=== PATIENT | female | born 1950 | race Hispanic/Latino ===

== ENCOUNTER → 2017-08-10 | Day surgery (SDC) | payer MEDICARE ==
[2017-08-09 17:02] LABS: BASOPHILS % 0.4 % (0.0-1.0); EOSINOPHILS # (AUTO) 0.1 (0.0-0.4); EOSINOPHILS % 2.4 % (0.0-6.0); HEMATOCRIT 31.3 % (34.2-44.1); HEMOGLOBIN 10.8 g/dL (12.0-16.0); LYMPHOCYTES # (AUTO) 0.8 (1.0-3.2); LYMPHOCYTES % 32.1 % (18.0-39.1); MEAN CORPUSCULAR HEMOGLOBIN 31.8 pg (28-32); MEAN CORPUSCULAR HGB CONC 34.5 g/dL (31-35); MEAN CORPUSCULAR VOLUME 92.1 fL (81-99); MONOCYTES # (AUTO) 0.2 (0.2-0.8); MONOCYTES % 6.7 % (4.4-11.3); NEUTROPHILS # (AUTO) 1.5 (2.1-6.9); NEUTROPHILS % 58.4 % (38.7-80.0); RED CELL DISTRIBUTION WIDTH 13.5 % (11.7-14.4)
[2017-08-09 17:03] LABS: PLATELET COUNT 77 x10e3/uL (140-360)
[~2017-08-10] MED LIST: B-12500 MCG; BIOTIN1 MG; FENTANYL CITRATE/PF 100MCG/2 ML INJ ONE; HYOSCYAMINE SULFATE 0.5 MG/ML AMP ONE; METFORMIN HCL500 MG PO; MIDAZOLAM HCL 2 MG/2 ML VIAL ONE; MILK THISTLE140 M1; PHYTONADIONE 10MG/ML 20 MG in SODIUM CHLORIDE 0.9% 50ML 50 ML IV ONE; PRAVASTATIN SOD10 MG; PROBIOTIC & AC1 EACH; PROPOFOL IV EMULSION 10 MG/ML 50 ML VIAL ONE; TUMERIC/CURCUMIN; VITAMIN D400 UNIT PO; Z.0.GLIMEPIRIDE4 MG PO; Z.0.TRICOR145 MG PO; Z.1.KOMBIGLYZE XR1 E PO
--- NOTE | 2017-08-10 13:05 | Operative Report ---
DATE OF PROCEDURE: August 10, 2017 REFERRING PHYSICIAN: Dr. Brad Ford. PROCEDURE PERFORMED: 1. Esophagogastroduodenoscopy with biopsies. 2. Colonoscopy with polypectomy and biopsies. INDICATIONS FOR ESOPHAGOGASTRODUODENOSCOPY: Dyspepsia. INDICATIONS FOR COLONOSCOPY: Colorectal cancer screening, personal history of colon polyps, abnormal CAT scan of the abdomen. MEDICATION: Patient was done under MAC. Please see anesthesiologist's note. PROCEDURE: With the patient in the left lateral decubitus position, the flexible fiberoptic Olympus gastroscope was introduced into the esophagus under direct visualization without any difficulty. Grade 3 to 4 esophageal varices were noted without active bleeding or stigmata of recent hemorrhage. The scope was then advanced with ease into the stomach. Mucosa overlying the antrum and the body revealed some diffuse erythema and moderate edema with minimal portal hypertensive gastropathy changes. The pylorus was of normal contour and shape, was intubated with ease, and the scope was advanced all the way to the second portion of the duodenum. The scope was then withdrawn slowly. Mucosa overlying the proximal second portion and duodenal bulb grossly appeared to be within normal limits. The scope was then withdrawn back into the stomach and retroflexed, and there were no fundal varices or cardiac varices. The scope was then straightened out. It was subsequently withdrawn. Patient tolerated the procedure well. IMPRESSION: 1. Grade 3 to 4 esophageal varices without active bleeding or stigmata of recent hemorrhage. 2. Gastritis with minimal portal hypertensive gastropathy changes. Biopsies obtained and sent to stain for H. pylori. 3. No fundal or cardiac varices were noted. PLAN: Follow up histology. Initiate Protonix 40 mg 1 p.o. q.a.m. a.c. Start Inderal 10 mg 1 p.o. b.i.d. Patient will electively need variceal banding. Will also discuss with patient regarding hepatitis C therapy. Patient was then turned around and after adequate lubrication of the anal canal, a flexible fiberoptic Olympus colonoscope was inserted into the rectum with ease and advanced all the way to the cecum. A minute polyp was hot biopsied from the cecum. The ileocecal valve was intubated, and the scope was advanced into the terminal ileum. There were some patchy areas of erythema and low-grade edema noted, and a hot biopsy was obtained from the terminal ileum. The scope was then withdrawn back into the colon. It was then withdrawn slowly, and there were some patchy areas of irritation noted in the ascending and the transverse. One polyp was snared from the descending colon. The sigmoid and the rectum revealed also some minimal inflammatory changes. The scope was then retroflexed into the distal rectum, and moderate-sized internal hemorrhoids were noted, none of which was actively bleeding. The scope was then straightened out. It was subsequently withdrawn. Patient tolerated procedure well. IMPRESSION: 1. Mild patchy nonspecific colitis. 2. Cecal polyp hot biopsied. 3. Descending colon polyp snared. 4. Internal hemorrhoids, none actively bleeding. PLAN: Follow up histology. Initiate high-fiber low-fat diet. Initiate high-fiber supplement. Patient might benefit from a followup colonoscopy in 3 years. Job#: [id number] EV cc:BRAD FORD MD
== END | disposition home or self-care (01) ==
LOC: OR 09:24
PROVIDERS: ATTEND Internal Medicine Gastroenterology
DX: Z12.11 Encounter for screening for malignant neoplasm of colon (principal); D12.0 Benign neoplasm of cecum; K52.9 Noninfective gastroenteritis and colitis, unspecified; K29.70 Gastritis, unspecified, without bleeding; K74.60 Unspecified cirrhosis of liver; I85.10 Secondary esophageal varices without bleeding; K76.6 Portal hypertension; K31.89 Other diseases of stomach and duodenum; K21.9 Gastro-esophageal reflux disease without esophagitis; K64.8 Other hemorrhoids; E11.9 Type 2 diabetes mellitus without complications; N20.0 Calculus of kidney; Z88.8 Allergy status to other drugs, medicaments and biological substances; Z01.810 Encounter for preprocedural cardiovascular examination; Z01.812 Encounter for preprocedural laboratory examination; Z79.84 Long term (current) use of oral hypoglycemic drugs
CPT/HCPCS: 36415 ×2; 43239; 45384; 45385; 82948; 85025; 88305; 88312; 93005; J1980; J2250; J3430; 45378; 45380

== ENCOUNTER → 2017-08-18 | Outpatient (CLI) | payer MEDICARE ==
[~2017-08-18] MED LIST changes: -FENTANYL CITRATE/PF 100MCG/2 ML INJ ONE; -HYOSCYAMINE SULFATE 0.5 MG/ML AMP ONE; -MIDAZOLAM HCL 2 MG/2 ML VIAL ONE; -PHYTONADIONE 10MG/ML 20 MG in SODIUM CHLORIDE 0.9% 50ML 50 ML IV ONE; -PROPOFOL IV EMULSION 10 MG/ML 50 ML VIAL ONE
--- NOTE | 2017-08-18 21:16 | Diagnostic Imaging Report ---
Liver-Spleen Scan with SPECT Clinical information: 66 F with elevated liver enzymes and possible cirrhosis Report: Following intravenous administration of 7.6 mCi of Tc-99 and sulfur colloid, images of the liver and spleen were obtained in multiple projections. Tomographic (SPECT) images of the liver and spleen were also obtained. The liver appears generally normal in size. The spleen is enlarged. Distribution of tracer activity is homogeneous throughout the hepatic and splenic parenchyma. Tracer in the spleen is increased relative to the liver. No focal abnormalities are identified. Very mildly increased tracer activity is seen in the bone marrow. Impression: 1. No scan evidence of hepatic or splenic masses. 2. Mild hypersplenism and colloid shift are present consistent with early cirrhosis. 3. The spleen is enlarged. Signed by: Dr. Alisson Vega M.D. on 08/18/2017 9:13 PM
== END ==
LOC: NM 11:52
PROVIDERS: ATTEND Internal Medicine Gastroenterology
DX: R74.8 Abnormal levels of other serum enzymes (principal)
CPT/HCPCS: 78215; A9541

== ENCOUNTER 2017-09-26 17:57 | Inpatient (IN) | payer MEDICARE ==
[~2017-09-26] VITALS: Ht 157.5 cm; Wt 70.3 kg
[2017-09-26] MEDS ORDERED: DICYCLOMINE HCL10 MG PO (18:34)
[2017-09-26] MEDS ORDERED: PRAVASTATIN SOD40 MG PO (18:34)
[2017-09-26] MEDS ORDERED: PROPRANOLOL HCL10 MG PO (18:34)
[2017-09-26] MEDS ORDERED: PANTOPRAZOLE SO40 MG PO (18:34)
[2017-09-26] MEDS ORDERED: ONDANSETRON HCL INJ 2 MG/ML VIAL IV STA (19:35)
[2017-09-26] MEDS ORDERED: MORPHINE SULFATE 2 MG/ML SYR IV STA (19:35)
[2017-09-26 19:42] LABS: BASOPHILS % 0.3 % (0.0-1.0); EOSINOPHILS # (AUTO) 0.8 (0.0-0.4); EOSINOPHILS % 12.8 % (0.0-6.0); HEMATOCRIT 32.4 % (34.2-44.1); HEMOGLOBIN 11.4 g/dL (12.0-16.0); LYMPHOCYTES % 17.8 % (18.0-39.1); MEAN CORPUSCULAR HEMOGLOBIN 31.5 pg (28-32); MEAN CORPUSCULAR HGB CONC 35.2 g/dL (31-35); MEAN CORPUSCULAR VOLUME 89.5 fL (81-99); MONOCYTES # (AUTO) 0.3 (0.2-0.8); MONOCYTES % 5.5 % (4.4-11.3); NEUTROPHILS # (AUTO) 3.7 (2.1-6.9); NEUTROPHILS % 63.1 % (38.7-80.0); PLATELET COUNT 104 x10e3/uL (140-360); RED BLOOD COUNT 3.62 x10e6/uL (3.6-5.1); RED CELL DISTRIBUTION WIDTH 13.8 % (11.7-14.4)
[2017-09-26 19:44] LABS: BILIRUBIN,URINE NEGATIVE (NEGATIVE); CLARITY,URINE CLEAR (CLEAR); COLOR,URINE YELLOW (YELLOW); KETONES,URINE NEGATIVE (NEGATIVE); LEUKOCYTE ESTERASE ,URINE NEGATIVE (NEGATIVE); NITRITE,URINE NEGATIVE (NEGATIVE); PROTEIN,URINE DIPSTICK NEGATIVE (NEGATIVE); URINE UROBILINOGEN 0.2 mg/dL (0.2 - 1)
[2017-09-26 19:46] LABS: INR 1.17
[2017-09-26 19:47] LABS: PARTIAL THROMBOPLASTIN TIME 28.9 seconds (23.8-35.5)
[2017-09-26 19:52] LABS: EPITHELIAL CELLS,URINE RARE /LPF; WBC,URINE (MAN) 0-5 /HPF (0-5)
[2017-09-26 19:57] LABS: ALANINE AMINOTRANSFERASE 29 IU/L (0-55); ALBUMIN 3.4 g/dL (3.5-5.0); ALBUMIN/GLOBULIN RATIO 0.8 (0.8-2.0); ALKALINE PHOSPHATASE 205 IU/L (40-150); AMYLASE 63 U/L (25-125); ANION GAP 14.9 mmol/L (8-16); BLOOD UREA NITROGEN 9 mg/dL (7-26); BUN/CREATININE RATIO 12 (6-25); CALCIUM 9.4 mg/dL (8.4-10.2); CARBON DIOXIDE 23 mmol/L (22-29); CHLORIDE 104 mmol/L (98-107); CREATININE, SERUM 0.76 mg/dL (0.57-1.11); EST GLOMERULAR FILTRATION RATE > 60 ML/MIN (60-); GLUCOSE 145 mg/dL (74-118); LIPASE 21 U/L (8-78); POTASSIUM 3.9 mmol/L (3.5-5.1); SODIUM 138 mmol/L (136-145)
[2017-09-26] MEDS ORDERED: IOPAMIDOL 370 MG/ML 200 ML INFUS..BTL INJ ONE (21:10)
[2017-09-26] MEDS ORDERED: SODIUM CHLORIDE 0.9% 50ML 50 ML ONE (21:10)
--- NOTE | 2017-09-26 23:03 | Diagnostic Imaging Report ---
EXAM: CT Abdomen and Pelvis WITH contrast INDICATION: Abdominal pain COMPARISON: None. TECHNIQUE: Abdomen and pelvis were scanned utilizing a multidetector helical scanner from the lung base to the pubic symphysis after administration of IV contrast. Coronal and sagittal reformations were obtained. Routine protocol was performed. Scan was performed when during portal venous phase. IV CONTRAST: 100 mL of Isovue-370 ORAL CONTRAST: None RADIATION DOSE: Total DLP: 394 mGy*cm Estimated effective dose: (DLP x 0.015 x size factor) mSv COMPLICATIONS: None FINDINGS: LINES and TUBES: None. LOWER THORAX: Unremarkable HEPATOBILIARY: No focal hepatic lesions. No biliary ductal dilation. GALLBLADDER: There are cholecystectomy clips. SPLEEN: No splenomegaly. PANCREAS: No focal masses or ductal dilatation. ADRENALS: No adrenal nodules KIDNEYS/URETERS: Kidneys enhance symmetrically. No hydronephrosis. No cystic or solid mass lesions. No stones. GI TRACT: There is loss of distal colonic haustration with significant inflammation of the sigmoid colon and rectum. The presence of pericolic fat stranding and retroperitoneal edema is suggestive of acute/subacute inflammatory process. Appendix is not clearly identified. There is however no fat stranding or adenopathy in the right lower quadrant to suggest appendicitis. PELVIC ORGANS/BLADDER: Unremarkable. LYMPH NODES: No lymphadenopathy. VESSELS: There is mild atherosclerotic disease in the aorta and major arterial branches. PERITONEUM / RETROPERITONEUM: No free air or fluid. BONES: There are degenerative changes in the lumbar spine. SOFT TISSUES: Unremarkable. IMPRESSION: 1. Findings in the sigmoid colon and rectum are compatible with colitis and proctitis of indeterminate origin. This may be inflammatory or infectious. No evidence of abscess formation. 2. Correlation with most recent colonoscopy. 3. Underlying, occult, neoplastic process cannot be excluded. Follow-up is recommended. Signed by: Dr. Gumaro Pena M.D. on 09/26/2017 10:59 PM
[2017-09-26] MEDS: SODIUM CHLORIDE 0.9% 1000ML 1,000 ML IV SCH (23:14)
[2017-09-26] MEDS ORDERED: DEXTROSE 50% SYRINGE 50 ML IV PRN (23:15)
[2017-09-27] VITALS (9 sets, daily range): BP systolic 96–143; BP diastolic 50–63
[2017-09-27] MEDS: METRONIDAZOLE 500MG/NS 100ML IV SCH ×3 (00:02→06:00)
[2017-09-27] MEDS ORDERED: ONDANSETRON HCL INJ 2 MG/ML VIAL ONE (01:16)
[2017-09-27] MEDS ORDERED: MORPHINE SULFATE 2 MG/ML SYR ONE (01:17)
[2017-09-27] MEDS ORDERED: LEVOFLOXACIN 500MG/D5W 100ML 100 ML IV ONE (01:17)
[2017-09-27] MEDS ORDERED: SODIUM CHLORIDE 0.9% 1000ML 1,000 ML ONE (01:17)
[2017-09-27] MEDS: ONDANSETRON HCL INJ 2 MG/ML VIAL IV PRN ×3 (01:25→12:30)
[2017-09-27] MEDS: MORPHINE SULFATE 2 MG/ML SYR IV PRN ×4 (01:25→20:39)
[2017-09-27] MEDS: LEVOFLOXACIN 500MG/D5W 100ML IV SCH ×2 (01:50→23:25)
[2017-09-27 05:34] LABS: BASOPHILS % 0.2 % (0.0-1.0); EOSINOPHILS # (AUTO) 0.6 (0.0-0.4); EOSINOPHILS % 12.9 % (0.0-6.0); HEMATOCRIT 28.3 % (34.2-44.1); HEMOGLOBIN 9.5 g/dL (12.0-16.0); LYMPHOCYTES % 23.4 % (18.0-39.1); MEAN CORPUSCULAR HGB CONC 33.6 g/dL (31-35); MEAN CORPUSCULAR VOLUME 92.5 fL (81-99); MONOCYTES # (AUTO) 0.3 (0.2-0.8); MONOCYTES % 7.7 % (4.4-11.3); NEUTROPHILS # (AUTO) 2.4 (2.1-6.9); NEUTROPHILS % 55.1 % (38.7-80.0); PLATELET COUNT 75 x10e3/uL (140-360); RED BLOOD COUNT 3.06 x10e6/uL (3.6-5.1); RED CELL DISTRIBUTION WIDTH 13.8 % (11.7-14.4)
[2017-09-27 06:03] LABS: ALANINE AMINOTRANSFERASE 44 IU/L (0-55); ALBUMIN 2.9 g/dL (3.5-5.0); ALBUMIN/GLOBULIN RATIO 0.8 (0.8-2.0); ALKALINE PHOSPHATASE 225 IU/L (40-150); ANION GAP 13.1 mmol/L (8-16); BLOOD UREA NITROGEN 8 mg/dL (7-26); BUN/CREATININE RATIO 11 (6-25); CALCIUM 8.9 mg/dL (8.4-10.2); CARBON DIOXIDE 25 mmol/L (22-29); CHLORIDE 105 mmol/L (98-107); CREATININE, SERUM 0.73 mg/dL (0.57-1.11); EST GLOMERULAR FILTRATION RATE > 60 ML/MIN (60-); GLUCOSE 115 mg/dL (74-118); POTASSIUM 4.1 mmol/L (3.5-5.1); SODIUM 139 mmol/L (136-145)
[2017-09-27 07:11] LABS: EOSINOPHILS % (MANUAL) 13 % (0-7); LYMPHOCYTES % (MANUAL) 21 % (19-48); MONOCYTES % (MANUAL) 8 % (3.4-9.0); NEUTROPHILS % (MANUAL) 58 % (40-74)
[2017-09-27 07:12] LABS: ANISOCYTOSIS SLIGHT; HYPOCHROMASIA SLIGHT; PLATELET ESTIMATE SLIGHTLY DECREASED; PLATELET MORPHOLOGY COMMENT FEW LARGE; POIKILOCYTOSIS SLIGHT; RBC MORPHOLOGY COMMENT ABNORMAL
[2017-09-27] MEDS: INSULIN REGULAR, HUMAN 100 UNIT/1 ML 3ML VIAL SQ SCH ×4 (08:34→21:30)
[2017-09-27] MEDS: SODIUM CHLORIDE 0.9% 1000ML 1,000 ML IV SCH ×2 (10:18→19:18)
[2017-09-27] MEDS: METRONIDAZOLE 500 MG TAB PO SCH ×2 (12:29→17:08)
[2017-09-28] VITALS (7 sets, daily range): BP systolic 129–143; BP diastolic 59–64
[2017-09-28] MEDS: MORPHINE SULFATE 2 MG/ML SYR IV PRN ×6 (00:19→23:47)
[2017-09-28] MEDS: METRONIDAZOLE 500 MG TAB PO SCH ×4 (00:52→17:52)
[2017-09-28] MEDS: ONDANSETRON HCL INJ 2 MG/ML VIAL IV PRN ×4 (00:52→21:00)
[2017-09-28] MEDS: ACETAMINOPHEN 325 MG TAB PO PRN (00:52)
[2017-09-28] MEDS ORDERED: CITRATE OF MAGNESIA 300ML BOTTLE PO ONE ×2 (02:45)
[2017-09-28] MEDS ORDERED: ACETAMINOPHEN 1000 MG/100 ML IV PRN (02:45)
[2017-09-28] MEDS: HYOSCYAMINE SULFATE 0.5 MG/ML AMP IV PRN ×3 (02:58→18:32)
[2017-09-28] MEDS: SODIUM CHLORIDE 0.9% 1000ML 1,000 ML IV SCH ×2 (05:20→08:14)
[2017-09-28] MEDS ORDERED: METRONIDAZOLE 500MG/NS 100ML 100 ML IV SCH (06:00)
[2017-09-28] MEDS: INSULIN REGULAR, HUMAN 100 UNIT/1 ML 3ML VIAL SQ SCH ×4 (08:35→21:00)
[2017-09-28] MEDS ORDERED: LIDOCAINE HCL 2% LOCAL INJ 5 ML SDV VIAL INJ ONE (14:11)
[2017-09-28] MEDS ORDERED: HYOSCYAMINE SULFATE 0.5 MG/ML AMP ONE (14:11)
[2017-09-28] MEDS ORDERED: PROPOFOL IV EMULSION 10 MG/ML 50 ML VIAL ONE (14:11)
[2017-09-28 16:23] LABS: WBC,FECAL (FECAL LACTOFERRIN) POSITIVE (NEGATIVE)
[2017-09-28] MEDS ORDERED: MORPHINE SULFATE 2 MG/ML SYR ONE (16:24)
--- NOTE | 2017-09-28 16:38 | Operative Report ---
DATE OF PROCEDURE: September 28, 2017 REFERRING PHYSICIAN: Dr. Brad Ford PROCEDURE PERFORMED: Colonoscopy with biopsies. INDICATIONS FOR COLONOSCOPY: Colitis per CT scan, abdominal pain, diarrhea. MEDICATION: Patient was done under MAC. Please see anesthesiologist's note. PROCEDURE: With the patient in the left lateral decubitus position, the flexible fiberoptic Olympus colonoscope was inserted into the rectum with ease and advanced all the way to the proximal ascending colon. Prep was suboptimal with moderate amount of retained stools in the colon. The scope was then withdrawn slowly, and multiple pseudomembranes were noted in the in the ascending, transverse, descending and sigmoid colon and biopsies were obtained. The rectal mucosa revealed moderate inflammatory changes, and biopsies were obtained. The scope was then retroflexed into the distal rectum, and small internal hemorrhoids were noted, none of which was actively bleeding. The scope was then straightened out. It was subsequently withdrawn after securing an adequate stool specimen that was sent for the appropriate stool studies. Patient tolerated the procedure well. IMPRESSION 1. Suboptimal prep. 2. Rule out pseudomembranous colitis. 3. Proctitis. 4. Internal hemorrhoids, none actively bleeding. PLAN: Follow up histology. Follow up stool studies. Start vancomycin 250 mg 1 p.o. q.6 h. Initiate full liquid diet. Job#: [id number] cc:BRAD FORD MD
[2017-09-28] MEDS: VANCOMYCIN 250MG/5ML ORAL SOLN PO SCH ×2 (17:52→23:57)
[2017-09-28] MEDS ORDERED: MIDAZOLAM HCL 2 MG/2 ML VIAL ONE (18:47)
[2017-09-28] MEDS ORDERED: FENTANYL CITRATE/PF 100MCG/2 ML INJ ONE (18:47)
[2017-09-29] VITALS: BP 120/57
[2017-09-29] MEDS: SODIUM CHLORIDE 0.9% 1000ML 1,000 ML IV SCH ×3 (01:14→21:14)
[2017-09-29] MEDS: METRONIDAZOLE 500MG/NS 100ML 100 ML IV SCH ×4 (02:00→22:00)
[2017-09-29] MEDS: HYOSCYAMINE SULFATE 0.5 MG/ML AMP IV PRN ×4 (02:30→22:00)
[2017-09-29] MEDS: MORPHINE SULFATE 2 MG/ML SYR IV PRN ×4 (03:15→22:26)
[2017-09-29 04:00] VITALS: BP 135/60
[2017-09-29] MEDS: ACETAMINOPHEN 325 MG TAB PO PRN ×2 (04:26→16:08)
[2017-09-29 05:27] LABS: BASOPHILS % 0.6 % (0.0-1.0); EOSINOPHILS # (AUTO) 0.3 (0.0-0.4); EOSINOPHILS % 6.7 % (0.0-6.0); HEMATOCRIT 26.8 % (34.2-44.1); HEMOGLOBIN 9.2 g/dL (12.0-16.0); LYMPHOCYTES # (AUTO) 0.6 (1.0-3.2); LYMPHOCYTES % 12.1 % (18.0-39.1); MEAN CORPUSCULAR HEMOGLOBIN 31.4 pg (28-32); MEAN CORPUSCULAR HGB CONC 34.3 g/dL (31-35); MEAN CORPUSCULAR VOLUME 91.5 fL (81-99); MONOCYTES # (AUTO) 0.3 (0.2-0.8); MONOCYTES % 6.1 % (4.4-11.3); NEUTROPHILS # (AUTO) 3.7 (2.1-6.9); NEUTROPHILS % 73.9 % (38.7-80.0); PLATELET COUNT 75 x10e3/uL (140-360); RED BLOOD COUNT 2.93 x10e6/uL (3.6-5.1); RED CELL DISTRIBUTION WIDTH 13.9 % (11.7-14.4)
[2017-09-29] MEDS: VANCOMYCIN 250MG/5ML ORAL SOLN PO SCH ×3 (05:56→18:13)
[2017-09-29 06:02] LABS: ANION GAP 12.2 mmol/L (8-16); BLOOD UREA NITROGEN 5 mg/dL (7-26); BUN/CREATININE RATIO 8 (6-25); CALCIUM 8.2 mg/dL (8.4-10.2); CARBON DIOXIDE 21 mmol/L (22-29); CHLORIDE 106 mmol/L (98-107); CREATININE, SERUM 0.63 mg/dL (0.57-1.11); EST GLOMERULAR FILTRATION RATE > 60 ML/MIN (60-); GLUCOSE 137 mg/dL (74-118); POTASSIUM 3.2 mmol/L (3.5-5.1); SODIUM 136 mmol/L (136-145)
[2017-09-29] MEDS: INSULIN REGULAR, HUMAN 100 UNIT/1 ML 3ML VIAL SQ SCH ×4 (07:30→21:00)
[2017-09-29 08:21] VITALS: BP 101/50
[2017-09-29] MEDS ORDERED: POTASSIUM CHLORIDE 20 MEQ TAB CR PO ONE (11:45)
[2017-09-29 12:16] VITALS: BP 101/50
[2017-09-29 12:32] VITALS: BP 118/59
[2017-09-29 14:16] LABS: C DIFFICILE TOXIN A&B AMP PROB **POSITIVE** (NEGATIVE)
[2017-09-29 19:22] VITALS: BP 103/61
[2017-09-30] VITALS (7 sets, daily range): BP systolic 104–131; BP diastolic 55–60
[2017-09-30] MEDS ORDERED: CEPACOL SORE THROAT LOZENGES PO PRN (01:00)
[2017-09-30] MEDS: MORPHINE SULFATE 2 MG/ML SYR IV PRN ×2 (01:55→11:09)
[2017-09-30] MEDS: VANCOMYCIN 250MG/5ML ORAL SOLN PO SCH ×4 (05:33→18:00)
[2017-09-30] MEDS: METRONIDAZOLE 500MG/NS 100ML 100 ML IV SCH ×3 (05:33→21:57)
[2017-09-30] MEDS: SODIUM CHLORIDE 0.9% 1000ML 1,000 ML IV SCH ×2 (07:14→17:14)
[2017-09-30] MEDS: INSULIN REGULAR, HUMAN 100 UNIT/1 ML 3ML VIAL SQ SCH ×4 (07:30→21:40)
[2017-09-30] MEDS: HYOSCYAMINE SULFATE 0.5 MG/ML AMP IV PRN (08:27)
[2017-09-30] MEDS: ACETAMINOPHEN 325 MG TAB PO PRN (11:02)
[2017-10-01] VITALS (8 sets, daily range): BP systolic 107–130; BP diastolic 53–60
[2017-10-01] MEDS ORDERED: POTASSIUM CHLORIDE 10 MEQ TABCR PO STA (00:02)
[2017-10-01] MEDS: VANCOMYCIN 250MG/5ML ORAL SOLN PO SCH ×5 (00:07→23:35)
[2017-10-01] MEDS: SODIUM CHLORIDE 0.9% 1000ML 1,000 ML IV SCH ×3 (04:00→21:24)
[2017-10-01] MEDS: METRONIDAZOLE 500MG/NS 100ML 100 ML IV SCH ×3 (05:42→21:24)
[2017-10-01 05:51] LABS: ANION GAP 10.8 mmol/L (8-16); BLOOD UREA NITROGEN < 5 mg/dL (7-26); CALCIUM 7.9 mg/dL (8.4-10.2); CARBON DIOXIDE 24 mmol/L (22-29); CHLORIDE 110 mmol/L (98-107); CREATININE, SERUM 0.56 mg/dL (0.57-1.11); EST GLOMERULAR FILTRATION RATE > 60 ML/MIN (60-); GLUCOSE 119 mg/dL (74-118); POTASSIUM 3.8 mmol/L (3.5-5.1); SODIUM 141 mmol/L (136-145)
[2017-10-01 05:52] LABS: BUN/CREATININE RATIO 9 (6-25)
[2017-10-01] MEDS: HYOSCYAMINE SULFATE 0.5 MG/ML AMP IV PRN ×2 (09:27→15:23)
[2017-10-01] MEDS: INSULIN REGULAR, HUMAN 100 UNIT/1 ML 3ML VIAL SQ SCH ×4 (09:51→21:20)
--- NOTE | 2017-10-01 17:05 | Diagnostic Imaging Report ---
Exam: Abdominal film Clinical History: Abdominal distention Comparison: None. DISCUSSION: Mild amount retained stool. Air within the stomach. No dilated loops of bowel. IMPRESSION: 1. Nonobstructive bowel gas pattern. Signed by: Dr. Javier Hughes M.D. on 10/01/2017 5:01 PM
--- NOTE | 2017-10-01 17:36 | Progress Note ---
DATE: October 01, 2017 INTERNAL MEDICINE PROGRESS NOTE SUBJECTIVE: Patient is complaining of abdominal distention. PHYSICAL EXAMINATION VITALS: Blood pressure 108/56. Temperature 98.6. Heart rate 89 per minute. Respiratory rate is 19 per minute. Oxygen saturation 94%. HEART: Regular rhythm. Normal S1, S2 sounds. LUNGS: Clear bilaterally. ABDOMEN: Soft, slightly distended. No tension. EXTREMITIES: No evidence of cyanosis, edema or trauma. BLOOD WORK: We have BMP with sodium 141, potassium 3.8, chloride 110, CO2 24, BUN 5, creatinine 0.56, leukocytes 119. On the CBC, white blood count 4.95, hemoglobin 9.2, hematocrit 26.8, platelet count 75,000. PT 14.0, PTT 28.9, INR 1.17. AST 25, ALT 44, total bilirubin 1.4, alkaline phosphatase 225. FINAL IMPRESSION 1. Clostridium difficile colitis. 2. Chronic anemia. 3. Cirrhosis. PLAN OF TREATMENT 1. Contact isolation. 2. Continue metronidazole 500 mg IV q.8 h. 3. Normal saline at 100 mL an hour. 4. Monitor blood sugar a.c. and nightly. 5. Morphine 3 mg IV q.3 h. as needed. 6. Zofran 4 mg IV q.4 h. as needed. 7. Vancomycin 250 mg p.o. q.6 h. 1. Tylenol 650 mg q.4 h. as needed. 2. Hyoscyamine 0.5 mg q.4 h. as needed. Job#: [id number]
[2017-10-01] MEDS: ACETAMINOPHEN 325 MG TAB PO PRN (21:29)
[2017-10-02] VITALS (9 sets, daily range): BP systolic 119–155; BP diastolic 56–76
[2017-10-02] MEDS: ONDANSETRON HCL INJ 2 MG/ML VIAL IV PRN (04:16)
[2017-10-02] MEDS: METRONIDAZOLE 500MG/NS 100ML 100 ML IV SCH ×3 (05:25→22:10)
[2017-10-02] MEDS: VANCOMYCIN 250MG/5ML ORAL SOLN PO SCH ×4 (05:26→23:53)
[2017-10-02] MEDS: HYOSCYAMINE SULFATE 0.5 MG/ML AMP IV PRN (06:02)
[2017-10-02] MEDS ORDERED: PANTOPRAZOLE 40 MG 10ML VIAL IV STA (07:38)
[2017-10-02] MEDS: INSULIN REGULAR, HUMAN 100 UNIT/1 ML 3ML VIAL SQ SCH ×4 (08:30→20:43)
[2017-10-02] MEDS: SODIUM CHLORIDE 0.9% 1000ML 1,000 ML IV SCH ×3 (11:00→23:54)
--- NOTE | 2017-10-02 16:05 | Progress Note ---
DATE: October 02, 2017 INTERNAL MEDICINE PROGRESS NOTE SUBJECTIVE: Patient is doing well. No significant complaint, except for heartburn and abdominal distention. PHYSICAL EXAMINATION HEART: Regular rhythm. Normal S1, S2 sounds. LUNGS: Clear bilaterally. ABDOMEN: Soft, slightly distended. No tension. No visceromegaly. VITALS: Blood pressure 155/70. Temperature 97.8. Heart rate 107 per minute. Respiratory rate is 20 per minute. Oxygen saturation 98%. LABS: On the BMP, sodium 141, potassium 3.8, chloride 110, CO2 24, BUN 5, creatinine 0.56. Glucose 119. CBC: White blood count 4.95, hemoglobin 9.2, hematocrit 23.8, platelet count 75,000. PT 14.0, PTT 28.9, INR 1.17. AST 75, ALT 44, total bilirubin 1.4, alkaline phosphatase 225. FINAL IMPRESSION 1. Clostridium difficile colitis. 2. Diabetes mellitus, type 2. 3. Cirrhosis of the liver. 4. Anemia of chronic disease. PLAN OF TREATMENT: Continue contact isolation. Continue metronidazole 500 mg IV q.8 h. Continue with normal saline 100 mL an hour. Continue with monitoring blood sugar a.c. and at bedtime, morphine 3 mg IV q.3 h. as needed for severe pain, Zofran 4 mg IV q.4 h. as needed for nausea and vomiting, vancomycin 250 mg p.o. q.6 h. Continue contact isolation. Continue Tylenol 650 mg q.4 h. as needed for pain or fever, hyoscyamine sulfate 0.5 mg q.4 h. as needed for abdominal pain, Protonix 40 mg before breakfast. Abdominal x-ray shows gas in the stomach, and that is it. Dr. Nielsen will be taking over the case starting tomorrow, October 03 at 7 a.m. Job#: [id number]
[2017-10-03] VITALS (8 sets, daily range): BP systolic 113–136; BP diastolic 53–62
[2017-10-03] MEDS ORDERED: DIPHENOXYLATE/ATROPINE TAB PO ONE (00:45)
--- NOTE | 2017-10-03 02:25 | Diagnostic Imaging Report ---
EXAM: ABDOMEN-1VIEW (KUB) DATE: 10/03/2017 12:49 AM Time stamp on exam: 01:20 AM INDICATION: Abdominal distention COMPARISON: 10/01/2017 FINDINGS: LINES/TUBES: None BOWEL PATTERN: No evidence for obstruction. Persistent gaseous distention of the stomach. SOFT TISSUES: Multiple pelvic phleboliths present. Cholecystectomy clips are present. LUNG BASES: Not included BONES: Bilateral SI joint generative changes. IMPRESSION: Nonobstructive bowel gas pattern. Signed by: Dr. Gumaro Pena M.D. on 10/03/2017 2:22 AM
[2017-10-03] MEDS: HYOSCYAMINE SULFATE 0.5 MG/ML AMP IV PRN (04:02)
[2017-10-03] MEDS: SODIUM CHLORIDE 0.9% 1000ML 1,000 ML IV SCH (05:14)
[2017-10-03] MEDS: METRONIDAZOLE 500MG/NS 100ML 100 ML IV SCH ×3 (05:27→22:18)
[2017-10-03] MEDS: VANCOMYCIN 250MG/5ML ORAL SOLN PO SCH ×3 (05:28→18:00)
[2017-10-03] MEDS: INSULIN REGULAR, HUMAN 100 UNIT/1 ML 3ML VIAL SQ SCH ×4 (07:30→21:07)
[2017-10-03] MEDS: PANTOPRAZOLE SOD 40 MG TABEC PO SCH (08:27)
[2017-10-03] MEDS: LACTOBACILLUS ACIDOPHILUS CAPSULE PO SCH ×3 (08:27→21:07)
--- NOTE | 2017-10-03 17:32 | Diagnostic Imaging Report ---
EXAM: Complete Abdominal Ultrasound INDICATION: \S\ascites with h/o cirrhosis \S\Y COMPARISON: CT dated 09/26/2017 TECHNIQUE: Transverse and longitudinal images of the upper abdomen were obtained. FINDINGS: Liver: Size: 15.8 cm in the right midclavicular line, normal Appearance: Normal echogenicity, mildly nodular contour Mass: No focal masses Spleen: Size: 14.2 cm in length, enlarged Echogenicity: Normal Mass: No focal masses Gallbladder: Surgically absent. Bile Ducts: Intrahepatic Ducts: No dilatation Extrahepatic Ducts: Common bile duct measures 0.6 cm, no dilatation Pancreas: Not well visualized. Right Kidney: Size: 11.2 cm Echogenicity: Normal Parenchymal thickness: Normal Collecting System: No hydronephrosis Stone: None Cyst/Mass: None Left Kidney: Size: 10.6 cm Echogenicity: Normal Parenchymal thickness: Normal Collecting System: No hydronephrosis Stone: None Cyst/Mass: None Vessels: Aorta: Distal abdominal aorta is not visualized, limiting evaluation. Inferior Vena Cava: Visualized portions are normal Main Portal Vein: 1.1 cm, normal size with hepatopetal flow. Free Fluid: Small to moderate volume abdominal ascites. IMPRESSION: Mildly nodular hepatic contour, consistent with history of cirrhosis. No focal hepatic lesion. Cholecystectomy. Small to moderate volume abdominal ascites. Signed by: Dr. Raffy Perez MD on 10/03/2017 5:29 PM
[2017-10-04] VITALS (8 sets, daily range): BP systolic 128–143; BP diastolic 59–65
[2017-10-04] MEDS: VANCOMYCIN 250MG/5ML ORAL SOLN PO SCH ×6 (00:21→23:21)
[2017-10-04 04:58] LABS: BASOPHILS % 0.5 % (0.0-1.0); EOSINOPHILS # (AUTO) 0.3 (0.0-0.4); EOSINOPHILS % 13.7 % (0.0-6.0); HEMATOCRIT 25.1 % (34.2-44.1); HEMOGLOBIN 8.3 g/dL (12.0-16.0); LYMPHOCYTES # (AUTO) 0.7 (1.0-3.2); LYMPHOCYTES % 32.2 % (18.0-39.1); MEAN CORPUSCULAR HEMOGLOBIN 30.9 pg (28-32); MEAN CORPUSCULAR HGB CONC 33.1 g/dL (31-35); MEAN CORPUSCULAR VOLUME 93.3 fL (81-99); MONOCYTES # (AUTO) 0.2 (0.2-0.8); MONOCYTES % 7.1 % (4.4-11.3); NEUTROPHILS % 45.6 % (38.7-80.0); PLATELET COUNT 82 x10e3/uL (140-360); RED BLOOD COUNT 2.69 x10e6/uL (3.6-5.1); RED CELL DISTRIBUTION WIDTH 14.6 % (11.7-14.4)
[2017-10-04] MEDS: METRONIDAZOLE 500MG/NS 100ML 100 ML IV SCH ×3 (05:20→21:58)
[2017-10-04 05:24] LABS: ALANINE AMINOTRANSFERASE 17 IU/L (0-55); ALBUMIN 2.5 g/dL (3.5-5.0); ALBUMIN/GLOBULIN RATIO 0.9 (0.8-2.0); ALKALINE PHOSPHATASE 155 IU/L (40-150); BLOOD UREA NITROGEN < 5 mg/dL (7-26); CARBON DIOXIDE 21 mmol/L (22-29); CHLORIDE 111 mmol/L (98-107); CREATININE, SERUM 0.54 mg/dL (0.57-1.11); EST GLOMERULAR FILTRATION RATE > 60 ML/MIN (60-); GLUCOSE 118 mg/dL (74-118); SODIUM 141 mmol/L (136-145)
[2017-10-04 05:25] LABS: BUN/CREATININE RATIO 9 (6-25)
[2017-10-04] MEDS: PANTOPRAZOLE SOD 40 MG TABEC PO SCH ×2 (07:28→10:34)
[2017-10-04] MEDS: INSULIN REGULAR, HUMAN 100 UNIT/1 ML 3ML VIAL SQ SCH ×4 (07:30→21:00)
[2017-10-04 08:05] LABS: BAND NEUTROPHILS % (MANUAL) 2 %; EOSINOPHILS % (MANUAL) 8 % (0-7); LYMPHOCYTES % (MANUAL) 42 % (19-48); MONOCYTES % (MANUAL) 7 % (3.4-9.0); NEUTROPHILS % (MANUAL) 39 % (40-74)
[2017-10-04 08:06] LABS: PLATELET ESTIMATE SLIGHTLY DECREASED; RBC MORPHOLOGY COMMENT NORMAL
[2017-10-04 08:07] LABS: ANISOCYTOSIS SLIGHT; HYPOCHROMASIA MODERATE; PLATELET MORPHOLOGY COMMENT NORMAL
[2017-10-04] MEDS ORDERED: MORPHINE SULFATE INJ 4 MG/ML INJ IV PRN (10:30)
[2017-10-04] MEDS: LACTOBACILLUS ACIDOPHILUS CAPSULE PO SCH ×4 (10:34→21:49)
[2017-10-04] MEDS ORDERED: POTASSIUM CHLORIDE 20 MEQ TAB CR PO NR ×2 (13:30→15:30)
[2017-10-05 05:06] LABS: BASOPHILS % 0.5 % (0.0-1.0); EOSINOPHILS # (AUTO) 0.3 (0.0-0.4); HEMATOCRIT 24.9 % (34.2-44.1); HEMOGLOBIN 8.3 g/dL (12.0-16.0); LYMPHOCYTES # (AUTO) 0.6 (1.0-3.2); LYMPHOCYTES % 31.8 % (18.0-39.1); MEAN CORPUSCULAR HEMOGLOBIN 31.2 pg (28-32); MEAN CORPUSCULAR HGB CONC 33.3 g/dL (31-35); MEAN CORPUSCULAR VOLUME 93.6 fL (81-99); MONOCYTES # (AUTO) 0.1 (0.2-0.8); MONOCYTES % 7.3 % (4.4-11.3); NEUTROPHILS # (AUTO) 0.9 (2.1-6.9); NEUTROPHILS % 46.4 % (38.7-80.0); PLATELET COUNT 98 x10e3/uL (140-360); RED BLOOD COUNT 2.66 x10e6/uL (3.6-5.1); RED CELL DISTRIBUTION WIDTH 14.8 % (11.7-14.4)
[2017-10-05 05:21] LABS: INR 1.27; PROTHROMBIN TIME 14.9 seconds (11.9-14.5)
[2017-10-05 05:44] LABS: ALANINE AMINOTRANSFERASE 17 IU/L (0-55); ALBUMIN 2.5 g/dL (3.5-5.0); ALBUMIN/GLOBULIN RATIO 0.8 (0.8-2.0); ALKALINE PHOSPHATASE 160 IU/L (40-150); ANION GAP 11.8 mmol/L (8-16); BLOOD UREA NITROGEN < 5 mg/dL (7-26); CALCIUM 8.3 mg/dL (8.4-10.2); CARBON DIOXIDE 24 mmol/L (22-29); CHLORIDE 111 mmol/L (98-107); CREATININE, SERUM 0.58 mg/dL (0.57-1.11); EST GLOMERULAR FILTRATION RATE > 60 ML/MIN (60-); GLUCOSE 144 mg/dL (74-118); POTASSIUM 3.8 mmol/L (3.5-5.1); SODIUM 143 mmol/L (136-145)
[2017-10-05 05:45] LABS: BUN/CREATININE RATIO 9 (6-25)
[2017-10-05] MEDS: VANCOMYCIN 250MG/5ML ORAL SOLN PO SCH ×2 (06:00→12:20)
[2017-10-05 06:10] VITALS: BP 136/63
[2017-10-05] MEDS: METRONIDAZOLE 500MG/NS 100ML 100 ML IV SCH ×3 (06:14→21:30)
[2017-10-05 06:44] LABS: EOSINOPHILS % (MANUAL) 12 % (0-7); LYMPHOCYTES % (MANUAL) 33 % (19-48); MONOCYTES % (MANUAL) 9 % (3.4-9.0); NEUTROPHILS % (MANUAL) 45 % (40-74)
[2017-10-05 06:45] LABS: PLATELET ESTIMATE ADEQUATE; PLATELET MORPHOLOGY COMMENT NORMAL; RBC MORPHOLOGY COMMENT NORMAL
[2017-10-05] MEDS: INSULIN REGULAR, HUMAN 100 UNIT/1 ML 3ML VIAL SQ SCH ×4 (07:30→21:28)
[2017-10-05 08:00] VITALS: BP 116/56
[2017-10-05] MEDS: LACTOBACILLUS ACIDOPHILUS CAPSULE PO SCH ×3 (09:00→21:27)
[2017-10-05 12:00] VITALS: BP 145/64
[2017-10-05 12:12] VITALS: BP 116/56
[2017-10-05] MEDS: PANTOPRAZOLE SOD 40 MG TABEC PO SCH (12:20)
--- NOTE | 2017-10-05 12:37 | Diagnostic Imaging Report ---
PROCEDURE:US GUIDED PARACENTESIS COMPARISON:None. INDICATIONS:Ascites FINDINGS:Preliminary ultrasound shows a small amount of free fluid within the abdomen. Following sterile preparation and local anesthesia was obtained with 1% Xylocaine. A 5 [employer] sheathed needle was then placed into the midline lower nominal fluid collection. 1200 cc of straw-colored ascitic fluid was withdrawn and sent to the laboratory for analysis. Patient tolerated procedure well. CONCLUSION:Successful right lower abdominal midline approach paracentesis. Tre Mitchell D.O. Dictated by: Tre Mitchell D.O. on 10/05/2017 at 12:42 Electronically approved by: Tre Mitchell D.O. on 10/05/2017 at 12:42
[2017-10-05 12:49] LABS: BODY FLUID TYPE PERITONEAL
[2017-10-05 12:50] LABS: BODY FLUID APPEARANCE SL.CLOUDY
[2017-10-05 12:51] LABS: BODY FLUID COLOR STRAW
[2017-10-05 12:52] LABS: RBC,BODY FLUID 319 cells/uL; WBC,BODY FLUID 373 cells/uL
[2017-10-05 12:56] LABS: LYMPHOCYTES,BODY FLUID 72 %; MONO/MACROPHG,BODY FLUID 26 %; NEUTROPHILS,BODY FLUID 2 %
[2017-10-05 16:00] VITALS: BP 125/61
[2017-10-05 20:00] VITALS: BP 127/58
[2017-10-06] VITALS: BP 138/63
[2017-10-06 00:22] VITALS: BP 138/63
[2017-10-06 04:00] VITALS: BP 127/58
[2017-10-06 05:15] LABS: BASOPHILS % 0.6 % (0.0-1.0); EOSINOPHILS # (AUTO) 0.2 (0.0-0.4); EOSINOPHILS % 11.7 % (0.0-6.0); HEMATOCRIT 26.9 % (34.2-44.1); LYMPHOCYTES # (AUTO) 0.6 (1.0-3.2); LYMPHOCYTES % 35.2 % (18.0-39.1); MEAN CORPUSCULAR HEMOGLOBIN 31.1 pg (28-32); MEAN CORPUSCULAR HGB CONC 33.5 g/dL (31-35); MEAN CORPUSCULAR VOLUME 93.1 fL (81-99); MONOCYTES # (AUTO) 0.2 (0.2-0.8); MONOCYTES % 9.3 % (4.4-11.3); NEUTROPHILS # (AUTO) 0.7 (2.1-6.9); NEUTROPHILS % 42.6 % (38.7-80.0); PLATELET COUNT 108 x10e3/uL (140-360); RED BLOOD COUNT 2.89 x10e6/uL (3.6-5.1); RED CELL DISTRIBUTION WIDTH 14.8 % (11.7-14.4)
[2017-10-06 05:58] LABS: ALANINE AMINOTRANSFERASE 16 IU/L (0-55); ALBUMIN 2.7 g/dL (3.5-5.0); ALBUMIN/GLOBULIN RATIO 0.8 (0.8-2.0); ALKALINE PHOSPHATASE 160 IU/L (40-150); ANION GAP 13.6 mmol/L (8-16); BLOOD UREA NITROGEN < 5 mg/dL (7-26); CALCIUM 8.4 mg/dL (8.4-10.2); CARBON DIOXIDE 25 mmol/L (22-29); CHLORIDE 107 mmol/L (98-107); CREATININE, SERUM 0.57 mg/dL (0.57-1.11); EST GLOMERULAR FILTRATION RATE > 60 ML/MIN (60-); GLUCOSE 116 mg/dL (74-118); POTASSIUM 3.6 mmol/L (3.5-5.1); SODIUM 142 mmol/L (136-145)
[2017-10-06 06:00] LABS: BUN/CREATININE RATIO 9 (6-25)
[2017-10-06 06:43] LABS: BAND NEUTROPHILS % (MANUAL) 2 %; EOSINOPHILS % (MANUAL) 7 % (0-7); LYMPHOCYTES % (MANUAL) 42 % (19-48); MONOCYTES % (MANUAL) 10 % (3.4-9.0); NEUTROPHILS % (MANUAL) 39 % (40-74)
[2017-10-06 06:44] LABS: PLATELET ESTIMATE SLIGHTLY DECREASED; PLATELET MORPHOLOGY COMMENT NORMAL; RBC MORPHOLOGY COMMENT NORMAL
[2017-10-06] MEDS ORDERED: VANCOMYCIN HCL 1 GM in SODIUM CHLORIDE 0.9% 250ML 250 ML IV ONE (06:45)
[2017-10-06 08:00] VITALS: BP 121/61
[2017-10-06] MEDS: PANTOPRAZOLE SOD 40 MG TABEC PO SCH (08:20)
[2017-10-06] MEDS: INSULIN REGULAR, HUMAN 100 UNIT/1 ML 3ML VIAL SQ SCH ×2 (08:20→12:00)
[2017-10-06] MEDS: LACTOBACILLUS ACIDOPHILUS CAPSULE PO SCH ×2 (08:20→16:42)
[2017-10-06 11:05] VITALS: BP 121/61
[2017-10-06] MEDS ORDERED: FLAGYL250 MG PO (11:13)
[2017-10-06] MEDS ORDERED: BACTRIM DS TAB1 EACH PO (11:14)
[2017-10-06 12:00] VITALS: BP 118/56
[2017-10-06] MEDS ORDERED: VANCOMYCIN 250MG/5ML ORAL SOLN PO SCH (12:00)
--- NOTE | 2017-10-06 12:17 | Discharge Summary ---
ADMISSION DIAGNOSES 1. Colitis. 2. Liver cirrhosis. DISCHARGE DIAGNOSES 1. Clostridium difficile colitis, resolving. 2. Methicillin-resistant Staphylococcus aureus urinary tract infection, resolving. 3. Decompensated liver cirrhosis with ascites. 4. Status post paracentesis. 5. Type 2 diabetes mellitus. 6. Pancytopenia secondary to liver cirrhosis. HOSPITAL COURSE: This is a 66-year-old woman who was admitted to [facility] with diagnosis of colitis. During this hospitalization, patient was diagnosed with Clostridium difficile colitis. Patient underwent colonoscopy during this hospitalization, performed by Dr. Mulugeta Myers, which revealed proctitis as well as possible pseudomembranous colitis. Patient's stool culture revealed the presence of Clostridium difficile antigen. The patient improved clinically with intravenous metronidazole and oral vancomycin. Also during this hospitalization, she was diagnosed with urinary tract infection. Urine culture during this hospital stay revealed the presence of methicillin-resistant Staphylococcus aureus or MRSA bacterial species. The patient was started on intravenous vancomycin during this hospitalization. Patient's hospitalization was unremarkable. She was also diagnosed with pancytopenia during this hospitalization, which was thought to be secondary to her liver cirrhosis. During this hospital stay, patient underwent a diagnostic and therapeutic paracentesis. During this procedure, the patient had 1200 mL of fluid removed. She tolerated the procedure quite well. No evidence of spontaneous bacterial peritonitis was not diagnosed with this procedure. The patient's hospitalization was unremarkable. Her condition on discharge was stable. The patient was told to stop metformin since the most frequent side effect from this medication is diarrhea. DISCHARGE MEDICATIONS 1. Glimepiride 4 mg once daily only if glucose level is over 200 mg/dL. 2. Propranolol 10 mg b.i.d. 3. Metronidazole 500 mg p.o. t.i.d. for 7 more days. 4. Bactrim DS b.i.d. for 7 more days. FOLLOWUP INSTRUCTIONS: Patient was instructed to follow up with Dr. Oscar Vidal or with myself, Dr. Bisi Ramos, within the next 2 to 3 weeks. BISI RAMOS MD Job#: [id number] DKA cc:DR. OSCAR MYERS
[2017-10-06] MEDS ORDERED: METRONIDAZOLE 500MG/NS 100ML 100 ML IV SCH (14:00)
== END 2017-10-06 17:48 | disposition home or self-care (01) | DRG 372 ==
LOC: ER 17:59 → ERHOLD 23:19 → MED/SURG 09-27 00:22 → MED/SURG2 09-28 16:46
PROC: 0DBP8ZX Excision of Rectum, Via Natural or Artificial Opening Endoscopic, Diagnostic (ICD-10-PCS; 2017-09-28)
PROC: 0DBG8ZX Excision of Left Large Intestine, Via Natural or Artificial Opening Endoscopic, Diagnostic (ICD-10-PCS; 2017-09-28 14:21)
PROC: 0W9G3ZX Drainage of Peritoneal Cavity, Percutaneous Approach, Diagnostic (ICD-10-PCS; principal; 2017-10-05)
DX: A04.72 Enterocolitis due to Clostridium difficile, not specified as recurrent (principal); R18.8 Other ascites; D61.818 Other pancytopenia; K62.89 Other specified diseases of anus and rectum; E86.0 Dehydration; K74.60 Unspecified cirrhosis of liver; K64.8 Other hemorrhoids; E11.9 Type 2 diabetes mellitus without complications; E87.6 Hypokalemia; K21.9 Gastro-esophageal reflux disease without esophagitis; D63.8 Anemia in other chronic diseases classified elsewhere; Z79.4 Long term (current) use of insulin
CPT/HCPCS: 36415; 45378; 45380; 49083; 74018; 74177; 74470; 76700; 80048; 80053; 81001; 82040; 82140; 82150; 82948; 83630; 83690; 83993; 85025; 85610; 85730; 87045; 87070; 87086; 87177; 87186; 87205; 87328; 87493; 88305; 89051; 96367; 96372; 96375; 96376; 99284; J1956; J1980; J2001; J2250; J2270; J2405; J3370; J7030; J7050; Q9967

== ENCOUNTER → 2017-12-26 | Day surgery (SDC) | payer MEDICARE, OTHER ==
[~2017-12-26] MED LIST changes: +BACTRIM DS TAB1 EACH PO; +DICYCLOMINE HCL10 MG PO; +FENTANYL CITRATE/PF 100MCG/2 ML INJ ONE; +FLAGYL250 MG PO; +GLIMEPIRIDE2 MG PO; +LIDOCAINE HCL 2% LOCAL INJ 5 ML SDV VIAL INJ ONE; +MIDAZOLAM HCL 2 MG/2 ML VIAL ONE; +PANTOPRAZOLE SO40 MG PO; +PRAVASTATIN SOD40 MG PO; +PROPOFOL IV EMULSION 10 MG/ML 50 ML VIAL ONE; +PROPRANOLOL HCL10 MG PO
[2017-12-26 09:04] LABS: EOSINOPHILS % 0.7 % (0.0-6.0); HEMATOCRIT 31.1 % (34.2-44.1); HEMOGLOBIN 10.4 g/dL (12.0-16.0); LYMPHOCYTES # (AUTO) 0.7 (1.0-3.2); LYMPHOCYTES % 43.8 % (18.0-39.1); MEAN CORPUSCULAR HEMOGLOBIN 32.6 pg (28-32); MEAN CORPUSCULAR HGB CONC 33.4 g/dL (31-35); MEAN CORPUSCULAR VOLUME 97.5 fL (81-99); MONOCYTES # (AUTO) 0.1 (0.2-0.8); MONOCYTES % 7.2 % (4.4-11.3); NEUTROPHILS # (AUTO) 0.7 (2.1-6.9); NEUTROPHILS % 47.6 % (38.7-80.0); PLATELET COUNT 68 x10e3/uL (140-360); RED BLOOD COUNT 3.19 x10e6/uL (3.6-5.1); RED CELL DISTRIBUTION WIDTH 14.7 % (11.7-14.4)
[2017-12-26 09:07] LABS: INR 0.83; PROTHROMBIN TIME 12.2 seconds (11.9-14.5)
[2017-12-26 09:08] LABS: PARTIAL THROMBOPLASTIN TIME 24.7 seconds (23.8-35.5)
[2017-12-26 09:21] LABS: ALANINE AMINOTRANSFERASE 114 IU/L (0-55); ALBUMIN 3.4 g/dL (3.5-5.0); ALBUMIN/GLOBULIN RATIO 1.1 (0.8-2.0); ALKALINE PHOSPHATASE 118 IU/L (40-150); ANION GAP 13.7 mmol/L (8-16); BLOOD UREA NITROGEN 18 mg/dL (7-26); BUN/CREATININE RATIO 26 (6-25); CALCIUM 9.4 mg/dL (8.4-10.2); CARBON DIOXIDE 25 mmol/L (22-29); CHLORIDE 106 mmol/L (98-107); CREATININE, SERUM 0.69 mg/dL (0.57-1.11); EST GLOMERULAR FILTRATION RATE > 60 ML/MIN (60-); GLUCOSE 113 mg/dL (74-118); POTASSIUM 3.7 mmol/L (3.5-5.1); SODIUM 141 mmol/L (136-145)
[2017-12-26 11:49] VITALS: BP 149/74
--- NOTE | 2017-12-26 12:52 | Operative Report ---
DATE OF PROCEDURE: December 26, 2017 REFERRING PHYSICIAN: Dr. Brad Ford. PROCEDURE PERFORMED: Esophagogastroduodenoscopy with esophageal variceal banding. INDICATIONS FOR PROCEDURE: Patient with history of large esophageal varices, in for EGD with banding. MEDICATION: Patient was done under MAC. Please see anesthesiologist's note. PROCEDURE: With the patient in the left lateral decubitus position, the flexible fiberoptic Olympus gastroscope was introduced into the esophagus under direct visualization without any difficulty. Some grade 3 to grade 4 esophageal varices were noted without active bleeding or stigmata of recent hemorrhage. The scope was then advanced with ease into the stomach, traversing a small sliding hiatal hernia. Mucosa overlying the antrum and the body revealed changes compatible with mild portal hypertensive gastropathy. The pylorus was of normal contour and shape, was intubated with ease, and the scope was advanced all the way to the 2nd portion of the duodenum. The scope was then withdrawn slowly. Mucosa overlying the proximal 2nd portion and the duodenal bulb appeared to be within normal limits. The scope was then withdrawn back into the stomach and retroflexed, and there was no evidence of fundal or cardiac varices. The scope was then straightened out. It was subsequently withdrawn. The scope was then reintroduced into the esophagus, equipped for banding. Five bands were applied to 2 columns of varices. The scope was subsequently withdrawn. Patient tolerated the procedure well. IMPRESSION: 1. Grade 3 to 4 esophageal varices. Five bands applied to 2 columns of varices. 2. Portal hypertensive gastropathy. PLAN: Patient will need a followup esophagogastroduodenoscopy with banding in 3 to 4 weeks. Job#: [id number] EV cc:BRAD FORD MD
[2017-12-26 15:39] LABS: EOSINOPHILS % (MANUAL) 1 % (0-7); LYMPHOCYTES % (MANUAL) 34 % (19-48); METAMYELOCYTES % (MANUAL) 1 % (0-0); MONOCYTES % (MANUAL) 8 % (3.4-9.0); NEUTROPHILS % (MANUAL) 45 % (40-74); PLATELET MORPHOLOGY COMMENT NORMAL; RBC MORPHOLOGY COMMENT NORMAL
[2017-12-26 15:40] LABS: PLATELET ESTIMATE MARKEDLY DECREASED
--- OUTSIDE RECORDS SUMMARY | 2017-12-27 14:16 | XMS REPORT | Clinical Summary ---
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 Disp. Refills Start End Date Status Date propranolol (INDERAL) 10 Take 10 mg by mouth 2 Active MG tablet (two) times a day. glimepiride (AMARYL) 4 MG Take 4 mg by mouth Active tablet nightly as needed. Take 1 tablet if Blood Sugar> 200. 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); Complete rotator cuff tear of left shoulder; Impingement syndrome of left shoulder 10/27/2017 Hospital Radiology Brandan Borges MD Cirrhosis of liver Encounter without ascites, unspecified hepatic cirrhosis type 10/20/2017 Transcribe Radiology Brandan Borges MD Cirrhosis of liver Orders without ascites, unspecified hepatic cirrhosis type (Primary Dx) 09/17/2017 Hospital Radiology Brandan Borges MD Cirrhosis of liver with Encounter ascites, unspecified hepatic cirrhosis type 09/16/2017 Procedure Pass Radiology 09/16/2017 Transcribe Access Brandan Borges MD Cirrhosis of liver with Orders ascites, unspecified hepatic cirrhosis type (Primary Dx) after 12/25/2016 Social History Tobacco Use Types Packs/Day Years Used Date Never Smoker Smokeless Tobacco: Never Used Alcohol Use Drinks/Week oz/Week Comments No Sex Assigned at Date Recorded Not on file Last Filed Vital Signs Vital Sign Reading Time Taken Blood Pressure 121/53 10/27/2017 12:45 PM CDT Pulse 75 10/27/2017 1:00 PM CDT Temperature 36.8 C (98.2 F) 10/27/2017 10:40 AM CDT Respiratory Rate 14 10/27/2017 12:45 PM CDT Oxygen Saturation 100% 10/27/2017 1:00 PM CDT Inhaled Oxygen - - Concentration Weight 68.5 kg (151 lb) 10/27/2017 8:55 AM CDT Height 157.5 cm (5' 2") 10/27/2017 8:55 AM CDT Body Mass Index 27.62 10/27/2017 8:55 AM CDT Plan of Treatment Date Type Specialty Care Team Description 12/29/2017 Office Visit Physical Therapy System, Provider Not In, Benjamin Kellogg, OT 01/02/2018 Office Visit Physical Therapy System, Provider Not In, Benjamin Kellogg, OT 01/06/2018 Office Visit Physical Therapy System, Provider Not In, Benjamin Kellogg, OT 01/09/2018 Office Visit Physical Therapy System, Provider Not In, Benjamin Kellogg, OT 01/13/2018 Office Visit Physical Therapy System, Provider Not In, Benjamin Kellogg, OT Health Maintenance Due Date Last Done Comments BREAST CANCER SCREENING 12/12/1999 SHINGRIX VACCINE (#1) 12/12/1999 ZOSTER VACCINE 2009 PNEUMOCOCCAL 2014 POLYSACCHARIDE VACCINE AGE 65 AND OVER PNEUMOCOCCAL-13 2014 INFLUENZA VACCINE 10/12/2017 COLON CANCER SCREENING 08/11/2027 08/10/2017, 08/10/2017 Procedures Procedure Name Priority Date/Time Associated Diagnosis Comments SURGICAL PATHOLOGY Routine 10/27/2017 Results for this REQUEST 11:38 AM CDT procedure are in the results section. IR TRANSJUGULAR LIVER Routine 10/27/2017 Cirrhosis of liver Results for this BIOPSY 10:39 AM CDT without ascites, procedure are in the unspecified hepatic results section. cirrhosis type POC GLUCOSE Routine 10/27/2017 Results for this 10:38 AM CDT procedure are in the results section. POC GLUCOSE Routine 10/27/2017 Results for this 8:39 AM CDT procedure are in the results section. MRI ABDOMEN W WO CONTRAST Routine 09/17/2017 Cirrhosis of liver with Results for this 12:21 PM CDT ascites, unspecified procedure are in the hepatic cirrhosis type results section. POC CREATININE Routine 09/17/2017 Results for this 12:04 PM CDT procedure are in the results section. ESTIMATED GFR Routine 09/17/2017 Results for this 12:04 PM CDT procedure are in the results section. after 12/25/2016 Results * Surgical pathology request (10/27/2017 11:38 AM) [facility] DEPARTMENT OF PATHOLOGY AND GENOMIC MEDICINE Surgical pathology report See link below for PDF Lab [facility] DEPARTMENT OF Report PATHOLOGY AND GENOMIC MEDICINE Result status This is Final Report for [facility] DEPARTMENT OF [id number] PATHOLOGY AND GENOMIC MEDICINE Performing Organization Address City/State/Zipcode Phone Number [facility] DEPARTMENT OF [address] [place] [address] PATHOLOGY AND GENOMIC MEDICINE * IR Transjugular Liver Biopsy (10/27/2017 10:39 AM) Narrative Performed At Procedure: Hepatic venogram with pressures and transjugular liver biopsy [facility] Clinical History: Cirrhosis Sedation: Versed and fentanyl were utilized for monitored conscious sedation during the procedure. The patient was transferred to the recovery room at the end of the procedure for further monitoring. [id number]-cf-[id number] time 16 minutes Anesthesia: Local Radiation dose: Ka,r=79 mGy Technique: After discussing the risks and benefits of the procedure and moderate conscious sedation with the patient she agreed to the procedure. A recorded image of the patent right internal jugular vein was obtained. After prepping and draping the right side of the neck, local anesthesia was administered and the internal jugular vein accessed with a 21-gauge needle under real-time ultrasound guidance. A 0.018 guidewire was advanced to the right atrium under fluoroscopy. A 5 Belgian catheter was placed and an Amplatz guidewire advanced into the inferior vena cava. After dilatation, a 9 Belgian sheath was placed. A 5 Belgian catheter was advanced into the right hepatic vein to perform the hepatic venogram which was normal. After advancing the sheath into the hepatic vein, transjugular liver biopsies were obtained and sent to surgical pathology. Pressures: Right atrium 5 mmHg mean Free hepatic 10 mmHg mean Wedge hepatic 14 mmHg. Complications: None Impression: 1. Normal right hepatic venogram. 2. Transjugular liver biopsies were obtained and sent to surgical pathology. Blood Loss: Less than 1 mL [facility]-[id number] Procedure Note Interface, Radiology Results Incoming - 10/27/2017 11:02 AM CDT Procedure: Hepatic venogram with pressures and transjugular liver biopsy Clinical History: Cirrhosis Sedation: Versed and fentanyl were utilized for monitored conscious sedation during the procedure. The patient was transferred to the recovery room at the end of the procedure for further monitoring. [id number]-[id number] time 16 minutes Anesthesia: Local Radiation dose: Ka,r=79 mGy Technique: After discussing the risks and benefits of the procedure and moderate conscious sedation with the patient she agreed to the procedure. A recorded image of the patent right internal jugular vein was obtained. After prepping and draping the right side of the neck, local anesthesia was administered and the internal jugular vein accessed with a 21-gauge needle under real-time ultrasound guidance. A 0.018 guidewire was advanced to the right atrium under fluoroscopy. A 5 Belgian catheter was placed and an Amplatz guidewire advanced into the inferior vena cava. After dilatation, a 9 Belgian sheath was placed. A 5 Belgian catheter was advanced into the right hepatic vein to perform the hepatic venogram which was normal. After advancing the sheath into the hepatic vein, transjugular liver biopsies were obtained and sent to surgical pathology. Pressures: Right atrium 5 mmHg mean Free hepatic 10 mmHg mean Wedge hepatic 14 mmHg. Complications: None Impression: 1. Normal right hepatic venogram. 2. Transjugular liver biopsies were obtained and sent to surgical pathology. Blood Loss: Less than 1 mL [facility]-[id number] Performing Organization Address [facility] Phone Number [facility] [address] [place] [address] * POC glucose (10/27/2017 10:38 AM) Only the most recent of 2 results within the time period is included. POC glucose 135 (H) 65 - 99 mg/dL [facility] DEPARTMENT OF Comment: PATHOLOGY AND No Action Needed GENOMIC MEDICINE Meter ID: [id number] Certified Nursing Assistant Instructor: Shorty Meyers Performing Organization Address [facility] Phone Number [facility] DEPARTMENT OF [address] [place] [id number] PATHOLOGY AND GENOMIC MEDICINE * MRI Abdomen W Wo Contrast (09/17/2017 12:21 PM) Narrative Performed At [facility] EXAMINATION:MRI ABDOMEN W WO CONTRAST CLINICAL HISTORY:K74.60 Unspecified cirrhosis of liver, CIRRHOSIS TECHNIQUE: Multiplanar multisequence MR images of the abdomen were obtained pre- and post dynamic intravenous administration of Gadolinium.MRCP images were obtained with 3-D reconstructions on the acquisition scanner under concurrent supervision. COMPARISON:None. IMPRESSION: The liver is cirrhotic. No focal hepatic mass or lesion is seen. There is splenomegaly. The spleen measures 15.9 cm in length. 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 These findings are compatible with portal hypertension. Peripancreatic fluid is seen adjacent to the pancreatic head and adjacent to the duodenum and proximal small bowel. Fluid extends into the right anterior pararenal space and a trace amount into the right perihepatic space. Given the location of this fluid, pancreatitis is of concern. Recommend clinical correlation with pancreatic enzymes. The common bile duct is normal in caliber. The gallbladder is absent. Pancreatic duct is tiny and not well seen. Kidneys are unremarkable. Adrenal glands are within normal limits. A small gastrohepatic ligament lymph node is mildly enlarged measuring 1.0 x 1.6 cm. Regional marrow is within normal limits. [facility]-[id number] Procedure Note Hm Interface, Radiology Results Incoming - 09/17/2017 6:05 PM CDT EXAMINATION: MRI ABDOMEN W WO CONTRAST CLINICAL HISTORY: K74.60 Unspecified cirrhosis of liver, CIRRHOSIS TECHNIQUE: Multiplanar multisequence MR images of the abdomen were obtained pre- and post dynamic intravenous administration of Gadolinium. MRCP images were obtained with 3-D reconstructions on the acquisition scanner under concurrent supervision. COMPARISON: None. IMPRESSION: The liver is cirrhotic. No focal hepatic mass or lesion is seen. There is splenomegaly. The spleen measures 15.9 cm in length. 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 These findings are compatible with portal hypertension. Peripancreatic fluid is seen adjacent to the pancreatic head and adjacent to the duodenum and proximal small bowel. Fluid extends into the right anterior pararenal space and a trace amount into the right perihepatic space. Given the location of this fluid, pancreatitis is of concern. Recommend clinical correlation with pancreatic enzymes. The common bile duct is normal in caliber. The gallbladder is absent. Pancreatic duct is tiny and not well seen. Kidneys are unremarkable. Adrenal glands are within normal limits. A small gastrohepatic ligament lymph node is mildly enlarged measuring 1.0 x 1.6 cm. Regional marrow is within normal limits. [facility]-[id number] Performing Organization Address City/State/Zipcode Phone Number [address] [address] * Estimated GFR (09/17/2017 12:04 PM) GFR Non Af Amer >90 mL/min/1.73 m2 [facility] DEPARTMENT OF PATHOLOGY AND GENOMIC MEDICINE GFR Af Amer >90 mL/min/1.73 m2 [facility] DEPARTMENT OF Comment: PATHOLOGY AND Chronic kidney disease: <60 GENOMIC MEDICINE mL/min/1.73m2 Kidney failure: <15 mL/min/1.73m2 The estimated GFR is calculated from the IDMS-traceable Modification of Diet in Renal Disease Equation. The accuracy of the calculation is poor when the creatinine is normal. Calculated values >90 mL/min/1.73m2 are not reported. This equation has not been validated in children (<18 years), women, the elderly (>70 years), or ethnic groups other than Caucasians and Americans. Specimen Blood Performing Organization Address [facility] Phone Number [address] [address] PATHOLOGY AND GENOMIC MEDICINE * POC creatinine (09/17/2017 12:04 PM) POC creatinine 0.5 0.5 - 0.9 mg/dl [facility] DEPARTMENT OF Comment: PATHOLOGY AND Meter ID: [id number] GENOMIC MEDICINE Certified Nursing Assistant Instructor: Gennaro Norton Specimen Blood Performing Organization Address [facility] Phone Number [facility] DEPARTMENT [address] [address] PATHOLOGY AND GENOMIC MEDICINE after 12/25/2016 Insurance Payer Benefit Subscriber ID Type Phone Address Plan / Group MEDICARE MEDICARE xxxxxxxxxx Medicare [place], [place] PART A AND B BANKERS LIFE AND CASUALTY BANKERS xxxxxxxxx [place] [address]
--- OUTSIDE RECORDS SUMMARY | 2017-12-27 14:16 | XMS REPORT | Continuity of Care Document ---
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 validated. Use of the eGFR is not recommended in the following populations: Individuals with unstable creatinine concentrations, including patients and those with serious co-morbid conditions. Patients with extremes in muscle mass or diet. The data above are obtained from the National Kidney Disease Education Program (NKDEP) which additionally recommends that when the eGFR is used in patients with extremes of body mass index for purposes of drug dosing, the eGFR should be multiplied by the estimated BMI. [facility] CHEM PANEL Creatinine Lvl 0.66 mg/dL 0.50 - 1.40 07/20/2017 [facility] CHEM PANEL Sodium Lvl 139 meq/L 135 - 145 07/20/2017 [facility] CHEM PANEL Potassium Lvl 3.8 meq/L 3.5 - 5.1 07/20/2017 [facility] CHEM PANEL Chloride Lvl 103 meq/L 95 - 109 07/20/2017 [facility] CHEM PANEL Glucose Lvl 196 mg/dL 70 - 99 07/20/2017 [facility] CHEM PANEL BUN 12 mg/dL 7 - 22 07/20/2017 [facility] CHEM PANEL Globulin 4.2 g/dL 2.7 - 4.2 07/20/2017 [facility] CHEM PANEL A/G Ratio 0.8 0.7 - 1.6 07/20/2017 [facility] CHEM PANEL AST 42 unit/L 0 - 37 07/20/2017 [facility] CHEM PANEL Alk Phos 200 unit/L 39 - 136 07/20/2017 [facility] CHEM PANEL Bili Total 1.2 mg/dL 0.2 - 1.3 07/20/2017 [facility] CHEM PANEL AGAP 12.8 meq/L 10.0 - 20.0 07/20/2017 [facility] CHEM PANEL B/C Ratio 18 6 - 25 07/20/2017 [facility] CHEM PANEL Albumin Lvl 3.5 g/dL 3.5 - 5.0 07/20/2017 [facility] CHEM PANEL ALT 51 unit/L 0 - 65 07/20/2017 [facility] CHEM PANEL CO2 27 meq/L 24 - 32 07/20/2017 [facility] CHEM PANEL Calcium Lvl 9.2 mg/dL 8.5 - 10.5 07/20/2017 [facility] CHEM PANEL Total Protein 7.7 g/dL 6.4 - 8.4 07/20/2017 [facility] CHEM PANEL Lipase Lvl 162 unit/L 73 - 393 07/20/2017 [facility] CHEM PANEL Amylase Lvl 72 unit/L 25 - 115 07/20/2017 [facility] HEMATOLOGY INR 1.01 0.85 - 1.17 07/20/2017 [facility] PT 13.3 s 12.0 - 14.7 07/20/2017 [facility] RDW 14.6 % 11.5 - 14.5 07/20/2017 [facility] Platelet 92 K/CMM 133 - 450 07/20/2017 [facility] MCH 31.2 pg 27.0 - 31.0 07/20/2017 [facility] MCHC 33.6 g/dL 32.0 - 36.0 07/20/2017 [facility] MPV 6.5 fL 7.4 - 10.4 07/20/2017 [facility] MCV 92.8 fL 80.0 - 98.0 07/20/2017 [facility] Hct 32.6 % 36.0 - 48.0 07/20/2017 [facility] Hgb 11.0 g/dL 12.0 - 16.0 07/20/2017 [facility] RBC 3.52 M/CMM 4.20 - 5.40 07/20/2017 [facility] WBC 2.5 K/CMM 3.7 - 10.4 07/20/2017 [facility] PTT 28.7 s 22.9 - 35.8 07/20/2017 [facility] Monocytes # 0.1 K/CMM 0.0 - 0.8 07/20/2017 [facility] HEMATOLOGY Eosinophils # 0.1 K/CMM 0.0 - 0.5 07/20/2017 [facility] HEMATOLOGY Lymphocytes # 0.6 K/CMM 1.0 - 5.5 07/20/2017 [facility] HEMATOLOGY Lymphocytes 24.4 % 20.0 - 40.0 07/20/2017 [facility] HEMATOLOGY Segs 66.9 % 45.0 - 75.0 07/20/2017 [facility] HEMATOLOGY Monocytes 5.1 % 2.0 - 12.0 07/20/2017 [facility] HEMATOLOGY Eosinophils 3.1 % 0.0 - 4.0 07/20/2017 [facility] HEMATOLOGY Basophils 0.5 % 0.0 - 1.0 07/20/2017 [facility] HEMATOLOGY Segs-Bands # 1.7 K/CMM 1.5 - 8.1 07/20/2017 [facility] URINE AND STOOL UA Blood Negative (07/20/17 12:14 PM) Negative 07/20/2017 [facility] URINE AND STOOL UA Bili Negative *NA* (07/20/17 12:14 PM) Negative 07/20/2017 [facility] URINE AND STOOL UA Urobilinogen 0.2 EU/dL 0.1 - 1.0 07/20/2017 [facility] URINE AND STOOL UA Nitrite Negative (07/20/17 12:14 PM) Negative 07/20/2017 [facility] URINE AND STOOL UA Bacteria Occasional /HPF None Seen /HPF 07/20/2017 [facility] URINE AND STOOL UA WBC 6-10 /HPF None Seen /HPF 07/20/2017 [facility] URINE AND STOOL UA Ketones Negative *NA* (07/20/17 12:14 PM) Negative 07/20/2017 [facility] URINE AND STOOL UA Leuk Est Small *ABN* (07/20/17 12:14 PM) Negative 07/20/2017 [facility] URINE AND STOOL UA Sq Epi Rare /LPF Few /LPF 07/20/2017 [facility] URINE AND STOOL UA Spec Grav <=1.005
*NA*
(07/20/17 12:14 PM) <=1.030 07/20/2017 [facility] URINE AND STOOL UA Turbidity Clear (07/20/17 12:14 PM) Clear 07/20/2017 [facility] URINE AND STOOL UA pH 6.0 5.0 - 8.0 07/20/2017 [facility] URINE AND STOOL UA Color Yellow *NA* (07/20/17 12:14 PM) Yellow 07/20/2017 [facility] URINE AND STOOL UA Glucose Negative (07/20/17 12:14 PM) Negative 07/20/2017 [facility] URINE AND STOOL UA Protein Negative (07/20/17 12:14 PM) Negative 07/20/2017 [facility] Brain wo contrast CT Brain wo contrast CT Patient Name: GEMA FAGAN : 1950; Age: 66 years y/o Female MR: [id number] Study: Brain wo contrast CT 07/20/2017 12:11 PM CDT Ordering Physician: Harvey Luther DO Clinical Indication: - dizziness after fall; Comparison: None TECHNIQUE: CT images were obtained from the foramen magnum to the vertex without the use of intravenous contrast on a multidetector CT. Coronal and sagittal reconstructions were obtained. CT radiation dose DLP: 920 mGy-cm FINDINGS: There is no evidence of acute intracranial hemorrhage, subacute territorial infarct, mass effect, midline shift, extra-axial fluid collection, hydrocephalus or other acute abnormalities. There is mild generalized cerebral volume loss with associated ventricular prominence. There are mild nonspecific supratentorial white matter hypodensities likely representing chronic small vessel ischemic changes in this age. There are no chronic territorial infarcts. There are calcifications in the carotid siphons and intradural vertebral arteries. The calvarium, paranasal sinuses and mastoids are unremarkable. If there is further concern for intracranial pathology or acute stroke, further assessment with an MRI of the brain should be considered. IMPRESSION: Mild age-related changes without evidence of acute intracranial process. SL: LARS 07/20/2017 - - Read by: Lamar Mancusoap Dictated Date/time: 07/20/17 12:55 Electronically Signed by: Lamar Mancuso 07/20/17 12:57 FINAL REPORT [facility] ED Abdomen/Pelvis IV contrast only CT ED Abdomen/Pelvis IV contrast only CT CT SCAN OF THE ABDOMEN AND PELVIS WITH CONTRAST. HX: Clinical Indication: - epigastric left sided abdominal pain; . Comparison: None Technique: Helical CT images were obtained from the domes the diaphragms to the symphysis pubis following the administration of intravenous contrast. No p.o. contrast was given. Total DLP:798.1. ABDOMEN AND PELVIS: The lung bases are clear. The heart is normal in size. Hepatocellular disease reflecting cirrhosis with portal hypertension, periesophageal and perisplenic varices. Severe splenomegaly. The pancreas and adrenals are normal in appearance. The kidneys show good, symmetrical enhancement without hydronephrosis. Diffusely thickened cecum and proximal right ascending colon with extensive peripancreatic fat stranding and inflammatory change likely reflecting nonspecific colitis. Additionally, prominent duodenum with enhancing wall and fat stranding may reflect secondary reactive changes. Small to moderate abdominal and pelvic ascites. Postoperative hysterectomy. The bladder is nondistended. IMPRESSION: 1. Diffusely thickened cecum and proximal right ascending colon with extensive peripancreatic fat stranding and inflammatory change likely reflecting nonspecific colitis. Additionally, prominent duodenum with enhancing wall and fat stranding may reflect secondary reactive changes. Small to moderate abdominal and pelvic ascites. 2. Hepatocellular disease reflecting cirrhosis with portal hypertension, periesophageal and perisplenic varices. Severe splenomegaly. 3. Postoperative hysterectomy. : [id number] 07/20/2017 - - Read by: William Luther MD Dictated Date/time: 07/20/17 13:08 Electronically Signed by: William Luther MD 07/20/17 13:15 FINAL REPORT [facility] Chest 1view DX Chest 1view DX Portable chest: The patient is rotated to the left. The cardiomediastinal silhouette and pulmonary vasculature are within normal limits. The lungs and pleural spaces are clear. There are no acute osseous abnormalities. IMPRESSION: No acute radiographic abnormality in the chest. [id number] 07/20/2017 - - Read by: Kevin Guillen MD Dictated Date/time: 07/20/17 12:41 Electronically Signed by: Kevin Guillen MD 07/20/17 12:41 FINAL REPORT [facility] Foot series DX Foot series DX Study: Right foot, 3 views Clinical Indication: Right foot pain status post injury Comparison: None FINDINGS: Multiple views of the right foot show no acute bony fracture or joint dislocation. Soft tissues are unremarkable. IMPRESSION: No acute bony abnormality of the right foot. SL: SHIRA 11/05/2015 - - Read by: Clement Clark MD Dictated Date/time: 11/05/15 22:46 Electronically Signed by: Clement Clark MD 11/05/15 22:47 FINAL REPORT [facility] Spine cervical 2 or 3 view DX Spine cervical 2 or 3 view DX Study: Spine cervical 2 or 3 view DX Clinical Indication: Pain Post Trauma; Comparison: None FINDINGS: No definite acute fractures or subluxations. Alignment of the cervical spine is grossly anatomic. The prevertebral soft tissues and atlanto-dental interspace are normal. The odontoid and lateral masses are grossly intact. If there is further concern or neurological abnormalities on clinical exam, recommend further radiographic views, MRI or CT of the cervical spine for complete assessment. IMPRESSION: 1. No definite acute fracture or pathologic subluxation detected. SL: [id number] 11/05/2015 - - Read by: William Luther MD Dictated Date/time: 11/05/15 22:40 Electronically Signed by: William Luther MD 11/05/15 22:42 FINAL REPORT [facility] Pelvis AP DX Pelvis AP DX EXAM: Pelvis AP DX DATE: 11/05/2015 9:28 PM CDT INDICATION: Pain Post Trauma COMPARISON: None. IMPRESSION: No definite acute fracture or dislocation. Moderate degenerative arthropathy of the hips. Multiple phleboliths are present within the pelvis. Abundance of stool within the colon. SL: [id number] RAMON 11/05/2015 - - Read by: William Luther MD Dictated Date/time: 11/05/15 22:28 Electronically Signed by: William Ltuher MD 11/05/15 22:29 FINAL REPORT [facility] Vital Signs Vital Sign Value Date Comments Source Respitory Rate 18 09/12/2017 [facility] Systolic (mm Hg) 102 09/12/2017 [facility] Diastolic (mm Hg) 63 09/12/2017 [facility] Temperature Oral (F) 99.1 F 09/12/2017 [facility] Heart Rate 68 09/12/2017 [facility] Heart Rate 65 09/12/2017 [facility] Systolic (mm Hg) 121 09/12/2017 [facility] Diastolic (mm Hg) 72 09/12/2017 [facility] Temperature Oral (F) 98.9 F 09/12/2017 [facility] Respitory Rate 18 09/12/2017 [facility] Heart Rate 68 09/12/2017 [facility] Respitory Rate 16 09/12/2017 [facility] Temperature Oral (F) 98.1 F 09/12/2017 [facility] Systolic (mm Hg) 153 09/12/2017 [facility] Diastolic (mm Hg) 72 09/12/2017 [facility] Height 157.48 cm 09/10/2017 [facility] Weight 72.273 09/10/2017 [facility] BMI Calculated 29.14 09/10/2017 [facility] BMI Calculated 29.14 09/10/2017 [facility] Height 157.48 cm 09/10/2017 [facility] Weight 72.273 09/10/2017 [facility] Temperature Oral (F) 97.8 F 07/20/2017 [facility] Respitory Rate 18 07/20/2017 [facility] Systolic (mm Hg) 149 07/20/2017 [facility] Diastolic (mm Hg) 67 07/20/2017 [facility] Respitory Rate 16 07/20/2017 [facility] Respitory Rate 16 07/20/2017 [facility] Systolic (mm Hg) 139 07/20/2017 [facility] Diastolic (mm Hg) 81 07/20/2017 [facility] Heart Rate 78 07/20/2017 [facility] Temperature Oral (F) 98.0 F 07/20/2017 [facility] Temperature Oral (F) 98.6 F 07/20/2017 [facility] Weight 75.773 07/20/2017 [facility] BMI Calculated 30.55 07/20/2017 [facility] Height 157.48 cm 07/20/2017 [facility] Heart Rate 80 07/20/2017 [facility] Systolic (mm Hg) 163 07/20/2017 [facility] Diastolic (mm Hg) 69 07/20/2017 [facility] Systolic (mm Hg) 144 11/06/2015 [facility] Diastolic (mm Hg) 82 11/06/2015 [facility] Heart Rate 82 11/06/2015 [facility] Temperature Oral (F) 98.4 F 11/06/2015 [facility] Respitory Rate 18 11/06/2015 [facility] Weight 72.727 11/06/2015 [facility] Temperature Oral (F) 98.4 F 11/06/2015 [facility] Systolic (mm Hg) 169 11/06/2015 [facility] Diastolic (mm Hg) 83 11/06/2015 [facility] Respitory Rate 18 11/06/2015 [facility] Heart Rate 93 11/06/2015 [facility] Encounters Location Location Details Encounter Type Encounter Number Reason For Visit Attending Provider ADM Date DC Date Status Source [facility] Emergency [id number] Cat Luther 11/06/2015 11/06/2015 [facility] Emergency [id number] Harvey Polancoen 07/20/2017 07/20/2017 [facility] Inpatient [id number] Talon Amaral 09/10/2017 09/12/2017 [facility] Procedures Procedure Code Date Perfomer Comments Source Hysterectomy [id number] [facility] Shoulder joint operations [id number] [facility] Appendectomy [id number] [facility] Cholecystectomy [id number] [facility] Tubal ligation<sup>1</sup> [id number] right rotator cuff [facility]
--- OUTSIDE RECORDS SUMMARY | 2017-12-27 14:17 | XMS REPORT | Summary of Care ---
Author Author [facility] Organization [facility] Address Unknown Phone Unavailable Encounter HQ Jessica(FIN) [id number] Date(s): 07/20/17 - 07/20/17 [id number] [place] [address]- [phone] Encounter Diagnosis Accidental fall (Discharge Diagnosis) - 07/20/17 Acute colitis (Discharge Diagnosis) - 07/20/17 Discharge Disposition: Home or Self Care Attending Physician: Harvey Luther DO Vital Signs 1 2 3 Most recent to oldest [Reference Range]: 157.48 cm (07/20/17 12:03 PM) Height 97.8 DegF (07/20/17 1:50 PM) 98.0 DegF (07/20/17 12:46 PM) 98.6 DegF (07/20/17 12:03 PM) Temperature Oral [96.4-99.1 DegF] 149/67 mmHg *HI* (07/20/17 1:29 PM) 139/81 mmHg (07/20/17 12:46 PM) 163/69 mmHg *HI* (07/20/17 12:03 PM) Blood Pressure [90-140/60-90 mmHg] 18 BRMIN (07/20/17 1:50 PM) 16 BRMIN (07/20/17 1:29 PM) 16 BRMIN (07/20/17 12:46 PM) Respiratory Rate [14-20 BRMIN] 78 bpm (07/20/17 12:46 PM) 80 bpm (07/20/17 12:03 PM) Peripheral Pulse Rate [60-100 bpm] 75.773 kg (07/20/17 12:03 PM) Weight 30.55 m2 (07/20/17 12:03 PM) Body Mass Index Problem List Condition Effective Dates Status Health Status Informant Diabetes(Confirmed) Active Allergies, Adverse Reactions, Alerts Substance Reaction Severity Status NSAIDs Active Medications Cipro 500 mg oral tablet 500 mg=1 tab, PO, Q12H, X 7 day, # 14 tab, 0 Refill(s) Start Date: 07/20/17 Stop Date: 07/27/17 Status: Ordered Flagyl 500 mg oral tablet 500 mg=1 tab, PO, Q8H, X 7 day, # 21 tab, 0 Refill(s) Start Date: 07/20/17 Stop Date: 07/27/17 Status: Ordered glimepiride 4 mg oral tablet 4 mg=1 tab, PO, Breakfast, # 30 tab, 0 Refill(s) Start Date: 07/20/17 Status: Ordered metFORMIN-repaglinide 500 mg-2 mg oral tablet 1 tab, PO, BID, # 60 tab, 0 Refill(s) Start Date: 07/20/17 Status: Ordered morphine Sulfate 2 mg, Route: IVP, ONCE, Dosing Weight 75.773, kg, Priority: STAT, Start date: 12:30:00 CDT, Stop date: 07/20/17 12:30:00 CDT Start Date: 07/20/17 Stop Date: 07/20/17 Status: Completed ondansetron 4 mg, Route: IVP, ONCE, Dosing Weight 75.773, kg, Priority: STAT, Start date: 12:11:00 CDT, Stop date: 07/20/17 12:11:00 CDT Start Date: 07/20/17 Stop Date: 07/20/17 Status: Completed pravastatin 40 mg oral tablet 40 mg=1 tab, PO, Bedtime, # 30 tab, 0 Refill(s) Start Date: 07/20/17 Status: Ordered Saline Flush 0.9% 10 mL, Route: IVP, Drug Form: INJ, Dosing Weight 75.773, kg, PRN, PRN Line Flush , Start date: 07/20/17 12:11:00 CDT, Duration: 30 day, Stop date: 08/19/17 12:10 :00 CDT Notes: (Same as: BD Posiflush) Start Date: 07/20/17 Stop Date: 07/20/17 Status: Discontinued Sodium Chloride 0.9% (Bolus) IV 1,000 mL, Infuse Over: 1 hr, Route: IV, ONCE, Priority: STAT, Dosing Weight 75.7 73 kg, Start date: 07/20/17 12:11:00 CDT, Stop date: 07/20/17 12:11:00 CDT Start Date: 07/20/17 Stop Date: 07/20/17 Status: Completed Ultram 50 mg oral tablet 50 mg=1 tab, PO, Q6H, PRN pain, no driving while under the influence of this med ication, X 3 day, # 12 tab, 0 Refill(s) Start Date: 07/20/17 Stop Date: 07/23/17 Status: Ordered Zofran ODT 4 mg oral tablet, disintegrating 4 mg=1 tab, PO, BID, PRN Nausea and Vomiting, Dissolve tab under tongue, # 10 ta b, 0 Refill(s) Start Date: 07/20/17 Stop Date: 07/25/17 Status: Ordered Results ELECTROLYTES Most recent to 1 oldest [Reference Range]: Sodium Lvl [135-145 139 mEq/L mEq/L] (07/20/17 12:14 PM) Potassium Lvl 3.8 mEq/L [3.5-5.1 mEq/L] (07/20/17 12:14 PM) Chloride Lvl [95-109 103 mEq/L mEq/L] (07/20/17 12:14 PM) CO2 [24-32 mEq/L] 27 mEq/L (07/20/17 12:14 PM) AGAP [10.0-20.0 12.8 mEq/L mEq/L] (07/20/17 12:14 PM) CHEM PANEL Most recent to 1 oldest [Reference Range]: Creatinine Lvl 0.66 mg/dL [0.50-1.40 mg/dL] (07/20/17 12:14 PM) eGFR 92 mL/min/1.73m2 1 *NA* (07/20/17 12:14 PM) BUN [7-22 mg/dL] 12 mg/dL (07/20/17 12:14 PM) B/C Ratio [6-25] 18 (07/20/17 12:14 PM) Glucose Lvl [70-99 196 mg/dL mg/dL] *HI* (07/20/17 12:14 PM) Total Protein 7.7 g/dL [6.4-8.4 g/dL] (07/20/17 12:14 PM) Albumin Lvl [3.5-5.0 3.5 g/dL g/dL] (07/20/17 12:14 PM) Globulin [2.7-4.2 4.2 g/dL g/dL] (07/20/17 12:14 PM) A/G Ratio [0.7-1.6] 0.8 (07/20/17 12:14 PM) Calcium Lvl 9.2 mg/dL [8.5-10.5 mg/dL] (07/20/17:14 PM) ALT [0-65 unit/L] 51 unit/L (07/20/17:14 PM) AST [0-37 unit/L] 42 unit/L *HI* (07/20/17: PM) Alk Phos [39-136 200 unit/L unit/L] *HI* (07/20/17:14 PM) Bili Total [0.2-1.3 1.2 mg/dL mg/dL] (07/20/17 12:14 PM) Amylase Lvl [25-115 72 unit/L unit/L] (07/20/17:14 PM) Lipase Lvl [73-393 162 unit/L unit/L] (07/20/17 12:14 PM) 1Result Comment: The eGFR is calculated using the [...] from the National Kid[employer] Education Program ( NKDEP) which additionally recommends that when the eGFR is used in patients with extremes of body mass index for purposes of drug dosing, the eGFR should be mul tiplied by the estimated BMI. CARDIAC ENZYMES Most recent to 1 oldest [Reference Range]: Total CK [12-191 59 unit/L unit/L] (07/20/17 12:14 PM) CK MB [0.5-3.6 0.5 ng/mL ng/mL] (07/20/17 12:14 PM) CK MB Index 0.8 [0.0-2.5] (07/20/17 12:14 PM) Troponin-I <0.02 ng/mL [0.00-0.40 ng/mL] (07/20/17 12:14 PM) URINE AND STOOL Most recent to 1 oldest [Reference Range]: UA Turbidity [Clear] Clear (07/20/17 12:14 PM) UA Color [Yellow] Yellow *NA* (07/20/17 12:14 PM) UA pH [5.0-8.0] 6.0 (07/20/17 12:14 PM) UA Spec Grav <=1.005 [<=1.030] *NA* (07/20/17:14 PM) UA Glucose Negative [Negative] (07/20/17 12:14 PM) UA Blood [Negative] Negative (07/20/17 12:14 PM) UA Ketones Negative [Negative] *NA* (07/20/17 12:14 PM) UA Protein Negative [Negative] (07/20/17 12:14 PM) UA Urobilinogen 0.2 EU/dL [0.1-1.0 EU/dL] (07/20/17 12:14 PM) UA Bili [Negative] Negative *NA* (07/20/17 12:14 PM) UA Leuk Est Small [Negative] *ABN* (07/20/17 12:14 PM) UA Nitrite Negative [Negative] (07/20/17 12:14 PM) UA WBC [None Seen 6-10 /HPF /HPF] *ABN* (07/20/17 12:14 PM) UA Bacteria [None Occasional /HPF Seen /HPF] (07/20/17 12:14 PM) UA Sq Epi [Few /LPF] Rare /LPF (07/20/17 12:14 PM) HEMATOLOGY Most recent to 1 oldest [Reference Range]: WBC [3.7-10.4 K/CMM] 2.5 K/CMM *LOW* (07/20/17 12:14 PM) RBC [4.20-5.40 3.52 M/CMM M/CMM] *LOW* (07/20/17 12:14 PM) Hgb [12.0-16.0 g/dL] 11.0 g/dL *LOW* (07/20/17 12:14 PM) Hct [36.0-48.0 %] 32.6 % *LOW* (07/20/17:14 PM) MCV [80.0-98.0 fL] 92.8 fL (07/20/17 12:14 PM) MCH [27.0-31.0 pg] 31.2 pg *HI* (07/20/17:14 PM) MCHC [32.0-36.0 33.6 g/dL g/dL] (07/20/17:14 PM) RDW [11.5-14.5 %] 14.6 % *HI* (07/20/17:14 PM) MPV [7.4-10.4 fL] 6.5 fL *LOW* (07/20/17:14 PM) Platelet [133-450 92 K/CMM K/CMM] *LOW* (07/20/17 12:14 PM) Segs [45.0-75.0 %] 66.9 % (07/20/17 12:14 PM) Lymphocytes 24.4 % [20.0-40.0 %] (07/20/17 12:14 PM) Monocytes [2.0-12.0 5.1 % %] (07/20/17:14 PM) Eosinophils [0.0-4.0 3.1 % %] (07/20/17 12:14 PM) Basophils [0.0-1.0 0.5 % %] (07/20/17 12:14 PM) Segs-Bands # 1.7 K/CMM [1.5-8.1 K/CMM] (07/20/17 12:14 PM) Lymphocytes # 0.6 K/CMM [1.0-5.5 K/CMM] *LOW* (07/20/17 12:14 PM) Monocytes # [0.0-0.8 0.1 K/CMM K/CMM] (07/20/17 12:14 PM) Eosinophils # 0.1 K/CMM [0.0-0.5 K/CMM] (07/20/17 12:14 PM) PT [12.0-14.7 13.3 seconds seconds] (07/20/17 12:14 PM) INR [0.85-1.17] 1.01 (07/20/17 12:14 PM) PTT [22.9-35.8 28.7 seconds seconds] (07/20/17 12:14 PM) Immunizations No data available for this section Procedures Procedure Date Related Diagnosis Body Site Status Hysterectomy Completed Shoulder joint operations Completed Social History Social History Type Response Smoking Status Never smoker; Exposure to Tobacco Smoke None; Cigarette Smoking Last 365 Days No; Reg Smoking Cessation Counseling No entered on: 07/20/17 Assessment and Plan No data available for this section
--- OUTSIDE RECORDS SUMMARY | 2017-12-27 14:17 | XMS REPORT | Summary of Care ---
Author Author [facility] Organization [facility] Address Unknown Phone Unavailable Encounter HQ Jessica(FIN) [id number] Date(s): 07/20/17 - 07/20/17 [id number] [place] [address]- [phone] Encounter Diagnosis Accidental fall (Discharge Diagnosis) - [...] PM) Amylase Lvl [25-115 72 unit/L unit/L] (07/20/17 12:14 PM) Lipase Lvl [73-393 162 unit/L unit/L] [...] (07/20/17:14 PM) MCHC [32.0-36.0 33.6 g/dL g/dL] (07/20/17 12:14 PM) RDW [11.5-14.5 %] 14.6 % *HI* (07/20/17:14 PM) MPV [7.4-10.4 fL] 6.5 fL *LOW* (07/20/17:14 PM) Platelet [133-450 92 K/CMM K/CMM] *LOW* (07/20/17 12:14 PM) Segs [45.0-75.0 %] 66.9 % (07/20/17 12:14 PM) Lymphocytes 24.4 % [20.0-40.0 %] (07/20/17 12:14 PM) Monocytes [2.0-12.0 5.1 % %] (07/20/17 12:14 PM) Eosinophils [0.0-4.0 3.1 % %] (07/20/17 [...]
--- OUTSIDE RECORDS SUMMARY | 2017-12-27 14:17 | XMS REPORT | Summary of Care ---
Author Author [facility]ly [facility] Organization [facility]ly [facility] Address Unknown Phone Unavailable Encounter ELLYN Lopez(OG) [id number] Date(s): 09/09/17 - 09/12/17 Formerly [facility] [address] [place] [address]- Encounter Diagnosis Cough with fever (Discharge Diagnosis) - 09/09/17 Cough (Final) - Discharge Disposition: Home or Self Care Attending Physician: Talon Amaral MD Admitting Physician: Talon Amaral MD Vital Signs 1 2 3 Most recent to oldest [Reference Range]: 157.48 cm (09/10/17 2:54 AM) 157.48 cm (09/09/17 11:07 PM) Height 99.1 DegF (09/12/17 10:54 AM) 98.9 DegF (09/12/17 7:10 AM) 98.1 DegF (09/12/17 3:53 AM) Temperature Oral [96.4-99.1 DegF] 102/63 mmHg (09/12/17 10:54 AM) 121/72 mmHg (09/12/17 7:10 AM) 153/72 mmHg *HI* (09/12/17 3:53 AM) Blood Pressure [90-140/60-90 mmHg] 18 BRMIN (09/12/17 10:54 AM) 18 BRMIN (09/12/17 7:10 AM) 16 BRMIN (09/12/17 3:53 AM) Respiratory Rate [14-20 BRMIN] 68 bpm (09/12/17 10:54 AM) 65 bpm (09/12/17 7:10 AM) 68 bpm (09/12/17 3:53 AM) Peripheral Pulse Rate [60-100 bpm] 72.273 kg (09/10/17 2:54 AM) 72.273 kg (09/09/17 11:07 PM) Weight 29.14 m2 (09/10/17 2:54 AM) 29.14 m2 (09/09/17 11:07 PM) Body Mass Index Problem List Condition Effective Dates Status Health Status Informant Diabetes(Confirmed) Active Allergies, Adverse Reactions, Alerts Substance Reaction Severity Status ibuprofen Active NSAIDs Active Medications Ceftin 500 mg oral tablet 500 mg=1 tab, PO, BID, X 10 day, # 20 tab, 0 Refill(s), Pharmacy: [facility] [id number] Start Date: 09/12/17 Stop Date: 09/22/17 Status: Ordered Compazine 10 mg, 2 mL, Route: IV, Drug form: INJ, ONCE, Dosing Weight 72.273, kg, Start da te: 09/09/17 23:28:00 CDT, Stop date: 09/09/17 23:28:00 CDT Notes: (Same as: Compazine) Start Date: 09/09/17 Stop Date: 09/09/17 Status: Completed Dextrose 50% Syringe 25 gm, 50 mL, Route: IVP, Drug Form: INJ, Dosing Weight 72.273, kg, PRN, PRN Blo od Glucose Results, Start date: 09/10/17 7:44:00 CDT, Duration: 30 day, Stop talon e: 10/10/17 7:43:00 CDT Start Date: 09/10/17 Stop Date: 09/12/17 Status: Discontinued Dextrose 50% Syringe 12.5 gm, 25 mL, Route: IVP, Drug Form: INJ, Dosing Weight 72.273, kg, PRN, PRN B lood Glucose Results, Start date: 09/10/17 7:44:00 CDT, Duration: 30 day, Stop d ate: 10/10/17 7:43:00 CDT Start Date: 09/10/17 Stop Date: 09/12/17 Status: Discontinued dicyclomine 10 mg, 1 cap, Route: PO, Drug form: CAP, TID, Dosing Weight 72.273, kg, Start da te: 09/10/17 9:00:00 CDT, Duration: 30 day, Stop date: 10/09/17 17:00:00 CDT Notes: (Same as: Bentgalileo) Start Date: 09/10/17 Stop Date: 09/12/17 Status: Discontinued dicyclomine 10 mg oral capsule 10 mg=1 cap, PO, TID, 0 Refill(s) Start Date: 09/10/17 Status: Ordered glucagon 1 mg, Route: IM, Drug form: PDR/INJ, PRN, Dosing Weight 72.273, kg, PRN Blood Gl ucose Results, Start date: 09/10/17 7:44:00 CDT, Duration: 30 day, Stop date: 7:43:00 CDT Start Date: 09/10/17 Stop Date: 09/12/17 Status: Discontinued insulin lispro 6 unit, 0.06 mL, Route: SUB-Q, Drug form: SOLN, TID-Before Meals, Dosing Weight 72.273, kg, PRN Blood Glucose Results, Start date: 09/10/17 7:44:00 CDT, Duratio n: 30 day, Stop date: 10/10/17 7:43:00 CDT Notes: (Same as: Humalog ) Roll in palms of hands gently; Do not shake `vigorou sly. "Single Patient Use Only " WASTE: F/P - Black; E - [employer] [address] able for 28 days at room temperature.Expires in days from Da te Start Date: 09/10/17 Stop Date: 09/12/17 Status: Discontinued insulin lispro 8 unit, 0.08 mL, Route: SUB-Q, Drug form: SOLN, TID-Before Meals, Dosing Weight 72.273, kg, PRN Blood Glucose Results, Start date: 09/10/17 7:44:00 CDT, Duratio n: 30 day, Stop date: 10/10/17 7:43:00 CDT Notes: (Same as: Humalog ) Roll in palms of hands gently; Do not shake `vigorou sly. "Single Patient Use Only " WASTE: F/P - Black; E - [employer] [address] [address] able for 28 days at room temperature.Expires in days from Da te Start Date: 09/10/17 Stop Date: 09/12/17 Status: Discontinued insulin lispro 2 unit, 0.02 mL, Route: SUB-Q, Drug form: SOLN, TID-Before Meals, Dosing Weight 72.273, kg, PRN Blood Glucose Results, Start date: 09/10/17 7:44:00 CDT, Duratio n: 30 day, Stop date: 10/10/17 7:43:00 CDT Notes: (Same as: Humalog ) Roll in palms of hands gently; Do not shake `vigorou sly. "Single Patient Use Only " WASTE: F/P - Black; E - [facility] [address] [address] able for 28 days at room temperature.Expires in days from Da te Start Date: 09/10/17 Stop Date: 09/12/17 Status: Discontinued insulin lispro 4 unit, 0.04 mL, Route: SUB-Q, Drug form: SOLN, TID-Before Meals, Dosing Weight 72.273, kg, PRN Blood Glucose Results, Start date: 09/10/17 7:44:00 CDT, Duratio n: 30 day, Stop date: 10/10/17 7:43:00 CDT Notes: (Same as: Humalog ) Roll in palms of hands gently; Do not shake `vigorou sly. "Single Patient Use Only " WASTE: F/P - Black; E - [facility] [address] [address] able for 28 days at room temperature.Expires in days from Da te Start Date: 09/10/17 Stop Date: 09/12/17 Status: Discontinued insulin lispro 10 unit, 0.1 mL, Route: SUB-Q, Drug form: SOLN, TID-Before Meals, Dosing Weight 72.273, kg, PRN Blood Glucose Results, Start date: 09/10/17 7:44:00 CDT, Duratio n: 30 day, Stop date: 10/10/17 7:43:00 CDT Notes: (Same as: Humalog ) Roll in palms of hands gently; Do not shake `vigorou sly. "Single Patient Use Only " WASTE: F/P - Black; E - [facility] [address] [address] able for 28 days at room temperature.Expires in days from Da te Start Date: 09/10/17 Stop Date: 09/12/17 Status: Discontinued insulin lispro 1 unit, 0.01 mL, Route: SUB-Q, Drug form: SOLN, Bedtime, Dosing Weight 72.273, k g, PRN Blood Glucose Results, Start date: 09/10/17 7:44:00 CDT, Duration: 30 day , Stop date: 10/10/17 7:43:00 CDT Notes: (Same as: Humalog ) Roll in palms of hands gently; Do not shake `vigorou sly. "Single Patient Use Only " WASTE: F/P - Black; E - [place] [address] able for 28 days at room temperature.Expires in days from Da te Start Date: 09/10/17 Stop Date: 09/12/17 Status: Discontinued insulin lispro 2 unit, 0.02 mL, Route: SUB-Q, Drug form: SOLN, Bedtime, Dosing Weight 72.273, k g, PRN Blood Glucose Results, Start date: 09/10/17 7:44:00 CDT, Duration: 30 day , Stop date: 10/10/17 7:43:00 CDT Notes: (Same as: Humalog ) Roll in palms of hands gently; Do not shake `vigorou sly. "Single Patient Use Only " WASTE: F/P - Black; E - [place] [address] able for 28 days at room temperature.Expires in days from Da te Start Date: 09/10/17 Stop Date: 09/12/17 Status: Discontinued insulin lispro 3 unit, 0.03 mL, Route: SUB-Q, Drug form: SOLN, Bedtime, Dosing Weight 72.273, k g, PRN Blood Glucose Results, Start date: 09/10/17 7:44:00 CDT, Duration: 30 day , Stop date: 10/10/17 7:43:00 CDT Notes: (Same as: Humalog ) Roll in palms of hands gently; Do not shake `vigorou sly. "Single Patient Use Only " WASTE: F/P - Black; E - [facility] [address] [address] able for 28 days at room temperature.Expires in days from Da te Start Date: 09/10/17 Stop Date: 09/12/17 Status: Discontinued insulin lispro 4 unit, 0.04 mL, Route: SUB-Q, Drug form: SOLN, Bedtime, Dosing Weight 72.273, k g, PRN Blood Glucose Results, Start date: 09/10/17 7:44:00 CDT, Duration: 30 day , Stop date: 10/10/17 7:43:00 CDT Notes: (Same as: Humalog ) Roll in palms of hands gently; Do not shake `vigorou sly. "Single Patient Use Only " WASTE: F/P - Black; E - [facility] [address] [address] able for 28 days at room temperature.Expires in days from Da te Start Date: 09/10/17 Stop Date: 09/12/17 Status: Discontinued Levaquin 750 mg, 150 mL, Route: IVPB, Drug form: SOLN, [id number], Dosing Weight 72.273, kg, Start date: 09/11/17 0:00:00 CDT, Duration: 3 day, Stop date: 09/13/17 0:00:00 CDT, ABX Indication: Urinary Tract Infection Notes: (Same as:Levaquin) Start Date: 09/11/17 Stop Date: 09/11/17 Status: Discontinued levofloxacin 750 mg, 150 mL, Route: IVPB, Drug form: SOLN, ONCE, Dosing Weight 72.273, kg, Pr iority: STAT, Start date: 09/10/17 0:05:00 CDT, Stop date: 09/10/17 0:05:00 CDT, ABX Indication: Pneumonia Notes: (Same as:Levaquin) Start Date: 09/10/17 Stop Date: 09/10/17 Status: Completed magnesium oxide 400 mg, 1 tab, Route: PO, Drug form: TAB, ONCE, Dosing Weight 72.273, kg, Start date: 09/11/17 9:27:00 CDT, Stop date: 09/11/17 9:27:00 CDT Notes: (Same as: Mag-Ox 400)Magnesium oxide [id number] elemental magnesiumDose= ____mg magnesium oxide (___mg elemental magnesium) Start Date: 09/11/17 Stop Date: 09/11/17 Status: Completed metFORMIN 500 mg oral tablet 1,000 mg=2 tab, PO, Daily, 0 Refill(s) Start Date: 09/10/17 Stop Date: 09/12/17 Status: Discontinued morphine Sulfate 4 mg, 1 mL, Route: IVP, Drug form: SOLN, ONCE, Dosing Weight 72.273, kg, Priorit y: STAT, Start date: 09/09/17 23:28:00 CDT, Stop date: 09/09/17 23:28:00 CDT Notes: (Same as:MORPhine Sulfate) Start Date: 09/09/17 Stop Date: 09/09/17 Status: Completed pantoprazole 40 mg, Route: IVP, Drug form: INJ, ONCE, Dosing Weight 72.273, kg, Priority: STA T, Start date: 09/09/17 23:29:00 CDT, Stop date: 09/09/17 23:29:00 CDT Notes: For IV push reconstitute with 10 ml 0.9% sodium chloride and push over 2 minutes. (Same as: Protonix) Start Date: 09/09/17 Stop Date: 09/09/17 Status: Completed pantoprazole 40 mg, 1 tab, Route: PO, Drug form: ECTAB, Daily, Dosing Weight 72.273, kg, Star t date: 09/10/17 9:00:00 CDT, Duration: 30 day, Stop date: 10/09/17 9:00:00 CDT Notes: (Same as: Protonix) Start Date: 09/10/17 Stop Date: 09/12/17 Status: Discontinued pantoprazole 40 mg oral enteric coated tablet 40 mg=1 tab, PO, Daily, # 30 tab, 0 Refill(s) Start Date: 09/10/17 Status: Ordered potassium phosphate-sodium phosphate 250 mg-280 mg-160 mg oral powder for recons titution 2 pkt, Route: PO, Drug Form: PDR/REC, Dosing Weight 72.273, kg, ONCE, Start date : 09/11/17 9:27:00 CDT, Stop date: 09/11/17 9:27:00 CDT Notes: (Same as: Phos-NaK) Each 1.5 gm pkt has 250mg phosphorous. Mix w/2.5oz w ater and stir. Start Date: 09/11/17 Stop Date: 09/11/17 Status: Completed pravastatin 40 mg, Route: PO, Drug form: TAB, Bedtime, Dosing Weight 72.273, kg, Start date: 09/10/17 21:00:00 CDT, Duration: 30 day, Stop date: 10/09/17 21:00:00 CDT Start Date: 09/10/17 Stop Date: 09/10/17 Status: Canceled propranolol 10 mg, 1 tab, Route: PO, Drug form: TAB, BID, Dosing Weight 72.273, kg, Start da te: 09/10/17 9:00:00 CDT, Duration: 30 day, Stop date: 10/09/17 17:00:00 CDT Notes: Give with food.(Same as: Inderal) Start Date: 09/10/17 Stop Date: 09/12/17 Status: Discontinued propranolol 10 mg oral tablet 10 mg=1 tab, PO, BID, # 60 tab, 0 Refill(s) Start Date: 09/10/17 Stop Date: 10/10/17 Status: Ordered Rocephin + sterile water 20 mL 2 gm, Route: IVPB, [id number], Dosing Weight 72.273, kg, Start date: 09/11/17 10:00 :00 CDT, Duration: 7 day, Stop date: 09/17/17 10:00:00 CDT, ABX Indication: Urin anibal Tract Infection Notes: (Same As: Rocephin).Use with 100 mL NS and infuse over 30 min MEDICA TION WASTE Product Size: 2000 mgProduct Wasted: ___ mg Start Date: 09/11/17 Stop Date: 09/12/17 Status: Discontinued Saline Flush 0.9% 10 ml, Route: IVP, Drug Form: INJ, Dosing Weight 72.273, kg, PRN, PRN Line Flush , Start date: 09/10/17 3:24:00 CDT, Duration: 30 day, Stop date: 10/10/17 3:23:0 0 CDT Notes: (Same as: BD Posiflush) Start Date: 09/10/17 Stop Date: 09/12/17 Status: Discontinued Saline Flush 0.9% 10 mL, Route: IVP, Drug Form: INJ, Dosing Weight 72.273, kg, PRN, PRN Line Flush , Start date: 09/09/17 23:29:00 CDT, Duration: 30 day, Stop date: 10/09/17 23:28 :00 CDT Notes: (Same as: BD Posiflush) Start Date: 09/09/17 Stop Date: 09/12/17 Status: Discontinued Sodium Chloride 0.9% (Bolus) IV 1,000 mL, 2,000 ml/hr, Infuse Over: 0.5 hr, Route: IV, 1,000, Drug form: INJ, ON CE, Priority: STAT, Dosing Weight 72.273 kg, Start date: 09/09/17 23:29:00 CDT, Stop date: 09/09/17 23:29:00 CDT Start Date: 09/09/17 Stop Date: 09/09/17 Status: Completed Sodium Chloride 0.9% IV 1,000 mL 1,000 mL, Rate: 75 ml/hr, Infuse over: 13.3 hr, Route: IV, Dosing Weight 72.273 kg, Total Volume: 1,000, Start date: 09/10/17 3:24:00 CDT, Stop date: 10/10/17 3 :24:00 CDT, 1.8, m2 Start Date: 09/10/17 Stop Date: 09/12/17 Status: Discontinued Tessalon Perles 200 mg, 2 cap, Route: PO, Drug form: CAP, TID, Dosing Weight 72.273, kg, PRN Cou gh, Start date: 09/11/17 19:59:00 CDT, Duration: 30 day, Stop date: 10/11/17 19: 58:00 CDT Notes: (Same As: Tessalon Perles)"Do Not Crush" Start Date: 09/11/17 Stop Date: 09/12/17 Status: Discontinued Tylenol 650 mg, 2 tab, Route: PO, Drug form: TAB, Q6H, Dosing Weight 72.273, kg, PRN Joi n 1-3/Temp > 100.4 F, Start date: 09/10/17 7:43:00 CDT, Duration: 30 day, Stop date: 10/10/17 7:42:00 CDT Notes: Do not exceed 4 gm/day. (Same as: Tylenol) Start Date: 09/10/17 Stop Date: 09/12/17 Status: Discontinued Tylenol 650 mg, Route: PO, Drug form: TAB, Q6H, Dosing Weight 72.273, kg, PRN Pain 1-3/T emp > 100.4 F, Start date: 09/10/17 10:13:00 CDT, Duration: 30 day, Stop date: 10/10/17 10:12:00 CDT Start Date: 09/10/17 Stop Date: 09/10/17 Status: Discontinued Zofran 4 mg, 2 mL, Route: IVP, Drug form: INJ, ONCE, Dosing Weight 72.273, kg, Priority : STAT, Start date: 09/09/17 23:28:00 CDT, Stop date: 09/09/17 23:28:00 CDT Notes: (Same as: Zofran) MEDICATION WASTE Product Size: 4 mgProduct Was paige: ___ mg Start Date: 09/09/17 Stop Date: 09/09/17 Status: Completed Results ELECTROLYTES 1 2 3 Most recent to oldest [Reference Range]: 142 mEq/L (09/12/17 4:07 AM) 142 mEq/L (09/11/17 4:08 AM) 135 mEq/L (09/09/17 11:33 PM) Sodium Lvl [135-145 mEq/L] 3.5 mEq/L (09/12/17 4:07 AM) 3.9 mEq/L (09/11/17 4:08 AM) 4.4 mEq/L (09/09/17 11:33 PM) Potassium Lvl [3.5-5.1 mEq/L] 109 mEq/L (09/12/17 4:07 AM) 109 mEq/L (09/11/17 4:08 AM) 102 mEq/L (09/09/17 11:33 PM) Chloride Lvl [95-109 mEq/L] 25 mEq/L (09/12/17 4:07 AM) 23 mEq/L *LOW* (09/11/17 4:08 AM) 27 mEq/L (09/09/17 11:33 PM) CO2 [24-32 mEq/L] 11.5 mEq/L (09/12/17 4:07 AM) 13.9 mEq/L (09/11/17 4:08 AM) 10.4 mEq/L (09/09/17 11:33 PM) AGAP [10.0-20.0 mEq/L] CHEM PANEL 1 2 3 Most recent to oldest [Reference Range]: 0.53 mg/dL (09/12/17 4:07 AM) 0.54 mg/dL (09/11/17 4:08 AM) 0.90 mg/dL (09/09/17 11:33 PM) Creatinine Lvl [0.50-1.40 mg/dL] 99 mL/min/1.73m2 1 *NA* (09/12/17 4:07 AM) 98 mL/min/1.73m2 2 *NA* (09/11/17 4:08 AM) 66 mL/min/1.73m2 3 *NA* (09/09/17 11:33 PM) eGFR 8 mg/dL (09/12/17 4:07 AM) 9 mg/dL (09/11/17 4:08 AM) 17 mg/dL (09/09/17 11:33 PM) BUN [7-22 mg/dL] 17 (09/11/17 4:08 AM) 19 (09/09/17 11:33 PM) B/C Ratio [6-25] 120 mg/dL *HI* (09/12/17 4:07 AM) 124 mg/dL *HI* (09/11/17 4:08 AM) 164 mg/dL *HI* (09/09/17 11:33 PM) Glucose Lvl [70-99 mg/dL] 6.4 g/dL (09/12/17 4:07 AM) 6.1 g/dL *LOW* (09/11/17 4:08 AM) 8.0 g/dL (09/09/17 11:33 PM) Total Protein [6.4-8.4 g/dL] 2.7 g/dL *LOW* (09/12/17 4:07 AM) 2.8 g/dL *LOW* (09/11/17 4:08 AM) 3.6 g/dL (09/09/17 11:33 PM) Albumin Lvl [3.5-5.0 g/dL] 3.7 g/dL (09/12/17 4:07 AM) 3.3 g/dL (09/11/17 4:08 AM) 4.4 g/dL *HI* (09/09/17 11:33 PM) Globulin [2.7-4.2 g/dL] 0.7 (09/12/17 4:07 AM) 0.8 (09/11/17 4:08 AM) 0.8 (09/09/17 11:33 PM) A/G Ratio [0.7-1.6] 7.9 mg/dL *LOW* (09/12/17 4:07 AM) 8.0 mg/dL *LOW* (09/11/17 4:08 AM) 8.8 mg/dL (09/09/17 11:33 PM) Calcium Lvl [8.5-10.5 mg/dL] 3.2 mg/dL (09/12/17 4:07 AM) 2.1 mg/dL *LOW* (09/11/17 4:08 AM) Phosphorus [2.5-4.5 mg/dL] 2.1 mg/dL (09/12/17 4:07 AM) 1.8 mg/dL (09/11/17 4:08 AM) Magnesium Lvl [1.8-2.4 mg/dL] 106 unit/L *HI* (09/12/17 4:07 AM) 115 unit/L *HI* (09/11/17 4:08 AM) 78 unit/L *HI* (09/09/17 11:33 PM) ALT [0-65 unit/L] 96 unit/L *HI* (09/12/17 4:07 AM) 129 unit/L *HI* (09/11/17 4:08 AM) 90 unit/L *HI* (09/09/17 11:33 PM) AST [0-37 unit/L] 276 unit/L *HI* (09/12/17 4:07 AM) 239 unit/L *HI* (09/11/17 4:08 AM) 288 unit/L *HI* (09/09/17 11:33 PM) Alk Phos [39-136 unit/L] 0.8 mg/dL (09/12/17 4:07 AM) 1.2 mg/dL (09/11/17 4:08 AM) 1.3 mg/dL (09/09/17 11:33 PM) Bili Total [0.2-1.3 mg/dL] 0.2 mg/dL (09/12/17 4:07 AM) Bili Direct [0.0-0.3 mg/dL] 0.6 mg/dL (09/12/17 4:07 AM) Bili Indirect [0.0-1.0 mg/dL] 0.8 mMol/L (09/09/17 11:33 PM) Lactic Acid Lvl [0.5-2.2 mMol/L] 0.23 ng/mL *HI* (09/09/17 11:33 PM) Procalcitonin Lvl [0.00-0.10 ng/mL] 1Result Comment: The eGFR is calculated using [...] be mul tiplied by the estimated BMI. 2Result Comment: The eGFR is calculated using the [...] be mul tiplied by the estimated BMI. 3Result Comment: The eGFR is calculated using the [...] tiplied by the estimated BMI. CARDIAC ENZYMES 1 2 3 Most recent to oldest [Reference Range]: 45 unit/L (09/09/17 11:33 PM) Total CK [12-191 unit/L] <0.02 ng/mL (09/09/17 11:33 PM) Troponin-I [0.00-0.40 ng/mL] SPECIAL CHEMISTRY 1 2 3 Most recent to oldest [Reference Range]: 7.0 % *HI* (09/11/17 4:08 AM) 7.3 % *HI* (09/10/17 10:19 AM) Hgb A1C [<=5.6 %] URINE AND STOOL 1 2 3 Most recent to oldest [Reference Range]: Slight Cloudy (09/10/17 1:08 AM) UA Turbidity [Clear] Yellow *NA* (09/10/17 1:08 AM) UA Color [Yellow] 6.0 (09/10/17 1:08 AM) UA pH [5.0-8.0] 1.010 (09/10/17 1:08 AM) UA Spec Grav [<=1.030] Negative (09/10/17 1:08 AM) UA Glucose [Negative] Moderate *ABN* (09/10/17 1:08 AM) UA Blood [Negative] Trace *ABN* (09/10/17 1:08 AM) UA Ketones [Negative] Negative (09/10/17 1:08 AM) UA Protein [Negative] 0.2 EU/dL (09/10/17 1:08 AM) UA Urobilinogen [0.1-1.0 EU/dL] Negative *NA* (09/10/17 1:08 AM) UA Bili [Negative] Moderate *ABN* (09/10/17 1:08 AM) UA Leuk Est [Negative] Positive *ABN* (09/10/17 1:08 AM) UA Nitrite [Negative] 21-50 /HPF *ABN* (09/10/17 1:08 AM) UA WBC [None Seen /HPF] 11-20 /HPF *ABN* (09/10/17 1:08 AM) UA RBC [0-2 /HPF] Many /HPF (09/10/17 1:08 AM) UA Bacteria [None Seen /HPF] Occasional /LPF (09/10/17 1:08 AM) UA Sq Epi [Few /LPF] Few /LPF (09/10/17 1:08 AM) UA Mucus [None Seen /LPF] HEMATOLOGY 1 2 3 Most recent to oldest [Reference Range]: 1.6 K/CMM *LOW* (09/12/17 4:07 AM) 1.9 K/CMM *LOW* (09/11/17 4:08 AM) 3.3 K/CMM *LOW* (09/09/17 11:33 PM) WBC [3.7-10.4 K/CMM] 2.78 M/CMM *LOW* (09/12/17 4:07 AM) 2.89 M/CMM *LOW* (09/11/17 4:08 AM) 3.38 M/CMM *LOW* (09/09/17 11:33 PM) RBC [4.20-5.40 M/CMM] 8.7 g/dL *LOW* (09/12/17 4:07 AM) 9.2 g/dL *LOW* (09/11/17 4:08 AM) 10.6 g/dL *LOW* (09/09/17 11:33 PM) Hgb [12.0-16.0 g/dL] 25.4 % *LOW* (09/12/17 4:07 AM) 26.7 % *LOW* (09/11/17 4:08 AM) 30.8 % *LOW* (09/09/17 11:33 PM) Hct [36.0-48.0 %] 91.6 fL (09/12/17 4:07 AM) 92.4 fL (09/11/17 4:08 AM) 91.0 fL (09/09/17 11:33 PM) MCV [80.0-98.0 fL] 31.5 pg *HI* (09/12/17 4:07 AM) 32.1 pg *HI* (09/11/17 4:08 AM) 31.4 pg *HI* (09/09/17 11:33 PM) MCH [27.0-31.0 pg] 34.4 g/dL (09/12/17 4:07 AM) 34.7 g/dL (09/11/17 4:08 AM) 34.5 g/dL (09/09/17 11:33 PM) MCHC [32.0-36.0 g/dL] 13.3 % (09/12/17 4:07 AM) 13.8 % (09/11/17 4:08 AM) 13.6 % (09/09/17 11:33 PM) RDW [11.5-14.5 %] 7.9 fL (09/12/17 4:07 AM) 7.9 fL (09/11/17 4:08 AM) 7.6 fL (09/09/17 11:33 PM) MPV [7.4-10.4 fL] 64 K/CMM *LOW* (09/12/17 4:07 AM) 58 K/CMM *LOW* (09/11/17 4:08 AM) 65 K/CMM *LOW* (09/09/17 11:33 PM) Platelet [133-450 K/CMM] 64.8 % (09/11/17 4:08 AM) 76.6 % *HI* (09/09/17 11:33 PM) Segs [45.0-75.0 %] 22.0 % (09/11/17 4:08 AM) 13.3 % *LOW* (09/09/17 11:33 PM) Lymphocytes [20.0-40.0 %] 10.6 % (09/11/17 4:08 AM) 7.0 % (09/09/17 11:33 PM) Monocytes [2.0-12.0 %] 2.1 % (09/11/17 4:08 AM) 2.4 % (09/09/17 11:33 PM) Eosinophils [0.0-4.0 %] 0.5 % (09/11/17 4:08 AM) 0.7 % (09/09/17 11:33 PM) Basophils [0.0-1.0 %] 1.3 K/CMM *LOW* (09/11/17 4:08 AM) 2.5 K/CMM (09/09/17 11:33 PM) Segs-Bands # [1.5-8.1 K/CMM] 0.4 K/CMM *LOW* (09/11/17 4:08 AM) 0.4 K/CMM *LOW* (09/09/17 11:33 PM) Lymphocytes # [1.0-5.5 K/CMM] 0.2 K/CMM (09/11/17 4:08 AM) 0.2 K/CMM (09/09/17 11:33 PM) Monocytes # [0.0-0.8 K/CMM] 0.1 K/CMM (09/09/17 11:33 PM) Eosinophils # [0.0-0.5 K/CMM] 14.4 seconds (09/09/17 11:33 PM) PT [12.0-14.7 seconds] 1.12 (09/09/17 11:33 PM) INR [0.85-1.17] 30.1 seconds (09/09/17 11:33 PM) PTT [22.9-35.8 seconds] VIRAL - SEROLOGY 1 2 3 Most recent to oldest [Reference Range]: Negative (09/10/17 5:38 AM) Influ A [Negative] Negative (09/10/17 5:38 AM) Influ B [Negative] Microbiology Reports TEST: Culture: Urine STATUS: Auth (Verified) BODY SITE: SOURCE: Urine, Clean Catch COLLECTED DATE/TIME: 09/10/17 1:08 AM FINAL REPORT <10,000 CFU/mL Skin Mone Immunizations No data available for this section Procedures Procedure Date Related Diagnosis Body Site Status Appendectomy Completed Cholecystectomy Completed Hysterectomy Completed Shoulder joint operations Completed Tubal ligation1 Completed 1right rotator cuff Social History Social History Type Response Alcohol Never Smoking Status Never smoker; Exposure to Tobacco Smoke None; Cigarette Smoking Last 365 Days No; Reg Smoking Cessation Counseling No entered on: 09/09/17 Assessment and Plan Extracted from: Title: Clinical Document Author: Talon Amaral MD Date: 09/12/17 IM PROGRESS NOTE (Dr. Talon Amaral M.D.) SUBJECTIVE Doing better; no SOB; no new fever; no CP. Vitals and Temp: VitalsTmp(F)[id number] 09/12 07:[id number]--- 09/12 03:[id number]--- 09/11 23:[id number]--- 09/11 19:[id number]--- 09/11 16:[id number]--- 24 Hr Tmax: 99.8F (37.67c) at 09/11 23:43Vital Signs are the last 5 in the past 48 hours. OBJECTIVE: HEENT: NC/AT, PERRL, EOMI, OP: clear NECK: Supple, no JVD CVS: RRR, S1, S2, soft syst. murmur LUNGS: low effort ABD: S/NT/ND, no guarding, no rebound tenderness, good bowel sound EXT: no C/C/E NEURO: awake, talking, moving extremities, CN II-XII intact. Scheduled Meds (4): 09/11/17 cefTRIAXone + sterile water 20 mL (Rocephin + sterile water 20 mL) 2 gm IVPB [id number] 240 ml/hr 09/10/17 dicyclomine 10 mg PO TID 09/10/17 pantoprazole 40 mg PO Daily 09/10/17 propranolol 10 mg PO BID PRN Meds (16): 09/10/17 Dextrose 50% in Water IV (Dextrose 50% Syringe) 12.5 gm IVP PRN 09/10/17 Dextrose 50% in Water IV (Dextrose 50% Syringe) 25 gm IVP PRN 09/10/17 acetaminophen (Tylenol) 650 mg PO Q6H 09/11/17 benzonatate (Tessalon Perles) 200 mg PO TID 09/10/17 glucagon 1 mg IM PRN 09/10/17 insulin lispro 2 unit SUB-Q TID-Before Meals 09/10/17 insulin lispro 4 unit SUB-Q TID-Before Meals 09/10/17 insulin lispro 6 unit SUB-Q TID-Before Meals 09/10/17 insulin lispro 8 unit SUB-Q TID-Before Meals 09/10/17 insulin lispro 10 unit SUB-Q TID-Before Meals 09/10/17 insulin lispro 1 unit SUB-Q Bedtime 09/10/17 insulin lispro 2 unit SUB-Q Bedtime 09/10/17 insulin lispro 3 unit SUB-Q Bedtime 09/10/17 insulin lispro 4 unit SUB-Q Bedtime 09/09/17 sodium chloride (Saline Flush 0.9%) 10 mL IVP PRN 09/10/17 sodium chloride (Saline Flush 0.9%) 10 ml IVP PRN Labs (Last four charted values) WBC L 1.6(SEP 12)L 1.9(SEP 11)L 3.3(SEP 09) Hgb L 8.7(SEP 12)L 9.2(SEP 11)L 10.6(SEP 09) Hct L 25.4(SEP 12)L 26.7(SEP 11)L 30.8(SEP 09) Plt L 64(SEP 12)L 58(SEP 11)L 65(SEP 09) Na 142(SEP 12)142(SEP 11)135(SEP 09) K 3.5(SEP 12)3.9(SEP 11)4.4(SEP 09) CO2 25(SEP 12)L 23(SEP 11)27(SEP 09) Cl 109(SEP 12)109(SEP 11)102(SEP 09) Cr 0.53(SEP 12)0.54(SEP 11)0.90(SEP 09) BUN 8(SEP 12)9(SEP 11)17(SEP 09) Glucose Random H 120(SEP 12)H 124(SEP 11)H 164(SEP 09) Mg 2.1(SEP 12)1.8(SEP 11) Phos 3.2(SEP 12)L 2.1(SEP 11) Ca L 7.9(SEP 12)L 8.0(SEP 11)8.8(SEP 09) PT 14.4(SEP 09) INR 1.12(SEP 09) PTT 30.1(SEP 09) Troponin <0.02(SEP 09) Total CK 45(SEP 09) IMPRESSION & PLAN DIAGNOSIS: 1. Acute febrile illness / Sepsis due to complicated urinary tract infection with bilateral pyelonephritis 2. Weakness and debilitated secondary to infection 3. Elevated LFT's - chronic hepatitis C / cirrhosis 4. Portal hypertension. 5. GERD 6. Diabetes Mellitus - type 2 7. Pancytopenia 8. Electrolyte abnormality - hypophosphatemia, hypomagnesemia PLAN: D/C home. F/U with PCP. F/U with hematology. F/U with Liver Specialist Extracted from: Title: Oncology/Hematology Consult Author: Ronaldo Martinez MD Date: 09/12/17 Impression and Plan Pancytopenia - likely secondary to cirrhosis, no need for transfusion, antibiotics or colony stimulating factors at this time. Could also be secondary to ceftriaxone Fever - on ceftriaxone, resolved
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
== END | disposition home or self-care (01) ==
LOC: ENDO 07:25
PROVIDERS: ATTEND Internal Medicine Gastroenterology
DX: K74.60 Unspecified cirrhosis of liver (principal); I85.10 Secondary esophageal varices without bleeding; K76.6 Portal hypertension; K31.89 Other diseases of stomach and duodenum; B19.10 Unspecified viral hepatitis B without hepatic coma; K44.9 Diaphragmatic hernia without obstruction or gangrene; E11.9 Type 2 diabetes mellitus without complications; M19.90 Unspecified osteoarthritis, unspecified site; L40.9 Psoriasis, unspecified; R00.1 Bradycardia, unspecified; Z88.8 Allergy status to other drugs, medicaments and biological substances; Z79.84 Long term (current) use of oral hypoglycemic drugs
CPT/HCPCS: 36415; 43244; 80053; 82948; 85025; 85610; 85730; 93005; J2001; J2250; 43239

== ENCOUNTER → 2018-02-06 | Day surgery (SDC) | payer MEDICARE, OTHER ==
[~2018-02-06] MED LIST changes: -LIDOCAINE HCL 2% LOCAL INJ 5 ML SDV VIAL INJ ONE; +MORPHINE SULFATE 2 MG/ML SYR ONE; +SIMETHICONE 40 MG/0.6 ML BTL ONE
--- OUTSIDE RECORDS SUMMARY | 2018-02-06 05:38 | XMS REPORT | Clinical Summary ---
Author Author [facility] Organization [facility] Address Unknown Phone Unavailable Care Team Providers Care Fruit And Vegetable Parer Name Role Phone Brad Michael MD PCP Allergies Comments Active Allergy Reactions Severity Noted Date Ibuprofen Hives, Rash Medium 09/17/2017 Medications End Date Status Medication Sig Dispensed Refills Start Date Active propranolol (INDERAL) 10 Take 10 mg by 0 MG tablet mouth 2 (two) times a day. Active glimepiride (AMARYL) 4 MG Take 4 mg by 0 tablet mouth nightly as needed. Take 1 tablet if Blood Sugar> 200. Active Problems Not on file Encounters Care Team Description Date Type Specialty Roosevelt Schwarz MD Adhesive capsulitis of left shoulder (Primary Dx); Complete rotator cuff tear of left shoulder; Impingement syndrome of left shoulder 12/01/2017 Transcribe Physical Therapy Orders Brandan Borges MD Cirrhosis of liver without ascites, unspecified hepatic cirrhosis type 10/27/2017 Hospital Radiology Encounter Brandan Borges MD Cirrhosis of liver without ascites, unspecified hepatic cirrhosis type (Primary Dx) 10/20/2017 Transcribe Radiology Orders Brandan Borges MD Cirrhosis of liver with ascites, unspecified hepatic cirrhosis type 09/17/2017 Hospital Radiology Encounter Brandan Borges MD Cirrhosis of liver with ascites, unspecified hepatic cirrhosis type (Primary Dx) 09/16/2017 Transcribe Access Orders after 02/05/2017 Social History Date Tobacco Use Types Packs/Day Years Used Never Smoker Smokeless Tobacco: Never Used Alcohol Use Drinks/Week oz/Week Comments No Sex Assigned at Date Recorded Not on file Industry Job Start Date Occupation Not on file Not on file Not on file Travel End Travel History Travel Start No recent travel history available. Last Filed Vital Signs Time Taken Vital Sign Reading 10/27/2017 12:45 PM CDT Blood Pressure 121/53 10/27/2017 1:00 PM CDT Pulse 75 10/27/2017 10:40 AM CDT Temperature 36.8 C (98.2 F) 10/27/2017 12:45 PM CDT Respiratory Rate 14 10/27/2017 1:00 PM CDT Oxygen Saturation 100% - Inhaled Oxygen - Concentration 10/27/2017 8:55 AM CDT Weight 68.5 kg (151 lb) 10/27/2017 8:55 AM CDT Height 157.5 cm (5' 2") 10/27/2017 8:55 AM CDT Body Mass Index 27.62 Plan of Treatment Health Maintenance Due Date Last Done Comments BREAST CANCER SCREENING 12/12/1999 SHINGRIX VACCINE (1 of 2) 12/12/1999 ZOSTER VACCINE 2009 PNEUMOCOCCAL 2014 POLYSACCHARIDE VACCINE AGE 65 AND OVER PNEUMOCOCCAL-13 2014 INFLUENZA VACCINE 10/12/2017 COLON CANCER SCREENING 08/11/2027 08/10/2017, 08/10/2017 Procedures Comments Procedure Name Priority Date/Time Associated Diagnosis SURGICAL PATHOLOGY Routine 10/27/2017 REQUEST 11:38 AM CDT IR TRANSJUGULAR LIVER Routine 10/27/2017 Cirrhosis of liver BIOPSY 10:39 AM CDT without ascites, unspecified hepatic cirrhosis type POC GLUCOSE Routine 10/27/2017 10:38 AM CDT POC GLUCOSE Routine 10/27/2017 8:39 AM CDT MRI ABDOMEN W WO CONTRAST Routine 09/17/2017 Cirrhosis of liver with 12:21 PM CDT ascites, unspecified hepatic cirrhosis type POC CREATININE Routine 09/17/2017 12:04 PM CDT ESTIMATED GFR Routine 09/17/2017 12:04 PM CDT after 02/05/2017 Results * Surgical pathology request (10/27/2017 11:38 AM CDT) [facility] DEPARTMENT OF PATHOLOGY AND GENOMIC MEDICINE Surgical pathology report See link below for PDF Lab [facility] DEPARTMENT OF Report PATHOLOGY AND GENOMIC MEDICINE Result status This is Final Report for [facility] DEPARTMENT OF [id number] PATHOLOGY AND GENOMIC MEDICINE Performing Organization Address City/State/Zipcode Phone Number [facility] DEPARTMENT OF [address] [place] [address] PATHOLOGY AND GENOMIC MEDICINE * IR Transjugular Liver Biopsy (10/27/2017 10:39 AM CDT) Narrative Performed At Procedure: Hepatic venogram with pressures and transjugular liver biopsy [facility] Clinical History: Cirrhosis Sedation: Versed and fentanyl were utilized for monitored conscious sedation during the procedure. The patient was transferred to the recovery room at the end of the procedure for further monitoring. [id number] time 16 minutes Anesthesia: Local Radiation dose: [...] the right atrium under fluoroscopy. A 5 Libyan catheter was placed and an Amplatz guidewire advanced into the inferior vena cava. After dilatation, a 9 Libyan sheath was placed. A 5 Libyan catheter was advanced into the right hepatic [...] pathology. Blood Loss: Less than 1 mL [facility]-[id number] Procedure Note Hm Interface, Radiology Results Incoming - 10/27/2017 11:02 AM CDT Procedure: Hepatic venogram with pressures and transjugular liver biopsy Clinical History: Cirrhosis Sedation: Versed and fentanyl were utilized for monitored conscious sedation during the procedure. The patient was transferred to the recovery room at the end of the procedure for further monitoring. [id number] time 16 minutes Anesthesia: Local Radiation dose: [...] the right atrium under fluoroscopy. A 5 Libyan catheter was placed and an Amplatz guidewire advanced into the inferior vena cava. After dilatation, a 9 Libyan sheath was placed. A 5 Libyan catheter was advanced into the right hepatic [...] pathology. Blood Loss: Less than 1 mL [id number] Performing Organization Address [facility] [place] [address] * POC glucose (10/27/2017 10:38 AM CDT) Only the most recent of 2 results within the time period is included. POC glucose 135 (H) 65 - 99 mg/dL [facility] DEPARTMENT OF Comment: PATHOLOGY AND No Action Needed GENOMIC MEDICINE Meter ID: [id number] Used [employer] Sales Supervisor: Shorty Herringjefeross Performing Organization Address [facility] Phone Number [address] [address] PATHOLOGY AND GENOMIC MEDICINE * MRI Abdomen W Wo Contrast (09/17/2017 12:21 PM CDT) Narrative Performed At [facility] EXAMINATION:MRI ABDOMEN W WO CONTRAST CLINICAL HISTORY:K74.60 [...] cm. Regional marrow is within normal limits. [facility]-[id number] Procedure Note Hm Interface, Radiology Results Incoming [...] cm. Regional marrow is within normal limits. [id number] Performing Organization Address City/State/Zipcode Phone Number [facility] [phone] [place] [address] * Estimated GFR (09/17/2017 12:04 PM CDT) GFR Non Af Amer >90 mL/min/1.73 m2 [facility] DEPARTMENT OF PATHOLOGY AND GENOMIC MEDICINE GFR Af Amer >90 mL/min/1.73 m2 [facility] DEPARTMENT OF Comment: PATHOLOGY AND Chronic kidney [...] and Americans. Specimen Blood Performing Organization Address City/State/Zipcode Phone Number [facility] DEPARTMENT OF [address] [place] [phone] PATHOLOGY AND GENOMIC MEDICINE * POC creatinine (09/17/2017 12:04 PM CDT) POC creatinine 0.5 0.5 - 0.9 mg/dl [facility] DEPARTMENT OF Comment: PATHOLOGY AND Meter ID: [id number] GENOMIC MEDICINE Used Car Sales Supervisor: Gennaro Norton Specimen Blood Performing Organization Address City/[facility] Phone Number [facility] DEPARTMENT [address] [address] PATHOLOGY AND GENOMIC MEDICINE after 02/05/2017 Insurance Payer Benefit Subscriber ID Type Phone Address Plan / Group MEDICARE MEDICARE xxxxxxxxxx Medicare [place] PART A AND B BANKERS LIFE AND CASUALTY BANKERS xxxxxxxxx Commercial LIFE AND CASUALTY Advance Directives Patient has advance care planning documents on file. For more information, salvador singh contact: Nahun Vasquez [address] [place] [phone]
--- OUTSIDE RECORDS SUMMARY | 2018-02-06 05:38 | XMS REPORT | Continuity of Care Document ---
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 Respitory Rate 18 09/12/2017 [facility] Heart Rate 68 09/12/2017 [facility] Respitory Rate 16 09/12/2017 [facility] Temperature Oral (F) 98.1 F 09/12/2017 [facility] Systolic (mm Hg) 153 09/12/2017 [facility] Diastolic (mm Hg) 72 09/12/2017 [facility] Height 157.48 cm 09/10/2017 [facility] Weight 72.273 09/10/2017 [facility] BMI Calculated 29.14 09/10/2017 [facility] BMI Calculated 29.14 09/10/2017 [facility] Height 157.48 cm 09/10/2017 [facility] Weight 72.273 09/10/2017 [facility] Temperature Oral (F) 97.8 F 07/20/2017 [facility] Respitory Rate 18 07/20/2017 [facility] Systolic (mm Hg) 149 07/20/2017 [facility] Diastolic (mm Hg) 67 07/20/2017 [facility] Respitory Rate 16 07/20/2017 [facility] Respitory Rate 16 07/20/2017 [facility] Systolic (mm Hg) 139 07/20/2017 [facility] Diastolic (mm Hg) 81 07/20/2017 [facility] Heart Rate 78 07/20/2017 [facility] Temperature Oral (F) 98.0 F 07/20/2017 [facility] Temperature Oral (F) 98.6 F 07/20/2017 [facility] Weight 75.773 07/20/2017 [facility] BMI Calculated 30.55 07/20/2017 [facility] Height 157.48 cm 07/20/2017 [facility] Heart Rate 80 07/20/2017 [facility] Systolic (mm Hg) 163 07/20/2017 [facility] Diastolic (mm Hg) 69 07/20/2017 [facility] Systolic (mm Hg) 144 11/06/2015 [facility] Diastolic (mm Hg) 82 11/06/2015 [facility] Heart Rate 82 11/06/2015 [facility] Temperature Oral (F) 98.4 F 11/06/2015 [facility] Respitory Rate 18 11/06/2015 [facility] Weight 72.727 11/06/2015 [facility] Temperature Oral (F) 98.4 F 11/06/2015 [facility] Systolic (mm Hg) 169 11/06/2015 [facility] Diastolic (mm Hg) 83 11/06/2015 [facility] Respitory Rate 18 11/06/2015 [facility] Heart Rate 93 11/06/2015 [facility] Encounters Location Location Details Encounter Type Encounter Number Reason For Visit Attending Provider ADM Date DC Date Status Source [facility] Emergency [id number] Cat Luther 11/06/2015 11/06/2015 [facility] Emergency [id number] Harvey Polancoen 07/20/2017 07/20/2017 [facility] Inpatient [id number] Talon Amaral 09/10/2017 09/12/2017 [facility] Procedures Procedure Code Date Perfomer Comments Source Hysterectomy [id number] [facility] Shoulder joint operations [id number] [facility] Appendectomy [id number] [facility] Cholecystectomy [id number] [facility] Tubal ligation<sup>1</sup> [id number] right rotator cuff [facility]
[2018-02-06 07:11] LABS: BASOPHILS % 0.5 % (0.0-1.0); EOSINOPHILS # (AUTO) 0.1 (0.0-0.4); EOSINOPHILS % 2.3 % (0.0-6.0); HEMATOCRIT 30.9 % (34.2-44.1); HEMOGLOBIN 10.4 g/dL (12.0-16.0); LYMPHOCYTES # (AUTO) 0.7 (1.0-3.2); MEAN CORPUSCULAR HEMOGLOBIN 33.2 pg (28-32); MEAN CORPUSCULAR HGB CONC 33.7 g/dL (31-35); MEAN CORPUSCULAR VOLUME 98.7 fL (81-99); MONOCYTES # (AUTO) 0.2 (0.2-0.8); MONOCYTES % 8.7 % (4.4-11.3); NEUTROPHILS # (AUTO) 1.2 (2.1-6.9); PLATELET COUNT 69 x10e3/uL (140-360); RED BLOOD COUNT 3.13 x10e6/uL (3.6-5.1); RED CELL DISTRIBUTION WIDTH 15.2 % (11.7-14.4)
--- NOTE | 2018-02-06 09:18 | Operative Report ---
DATE OF PROCEDURE: February 06, 2018 PROCEDURE PERFORMED: Esophagogastroduodenoscopy with banding. REFERRING PHYSICIAN: Dr. Brad Michael INDICATIONS FOR EGD: History of esophageal varices, in for additional banding. MEDICATION: Patient was done under MAC. Please see anesthesiologist note. PROCEDURE IN DETAIL: With the patient in left lateral decubitus position, flexible fiberoptic Olympus gastroscope was introduced into the esophagus under direct visualization without any difficulty. Grade 3 to 4 esophageal varices were noted without active bleeding. The scope was then advanced with ease into the stomach. The mucosa overlying the antrum and the body revealed changes compatible with portal hypertensive gastropathy. The pylorus was intubated with ease and the scope was advanced all the way to second portion of the duodenum. The scope was then withdrawn slowly. Mucosa overlying the proximal second portion and the duodenal bulb appeared to be within normal limits. The scope was then withdrawn back into the stomach and retroflexed and the mucosa overlying the fundus also revealed portal hypertensive gastropathy changes. There were no fundal or cardiac varices. The scope was then straightened out. It was subsequently withdrawn. Scope was then fitted for banding and it was re-introduced into the esophagus and 6 bands were applied to 3 columns of varices. The scope was subsequently withdrawn. Patient tolerated the procedure well. IMPRESSION: 1. Grade 3 to 4 esophageal varices without active bleeding or stigmata of recent hemorrhage. Six bands applied to 3 columns of varices. 2. Portal hypertensive gastropathy. PLAN: Continue Inderal 10 mg 1 p.o. b.i.d. Job#: [id number] cc:MD BRIDGER ESPOSITO MD
[2018-02-06 09:35] VITALS: BP 137/59
== END | disposition home or self-care (01) ==
LOC: ENDO 05:35
PROVIDERS: ATTEND Internal Medicine Gastroenterology
DX: K74.60 Unspecified cirrhosis of liver (principal); I85.10 Secondary esophageal varices without bleeding; K76.6 Portal hypertension; K31.89 Other diseases of stomach and duodenum; K21.9 Gastro-esophageal reflux disease without esophagitis; K51.90 Ulcerative colitis, unspecified, without complications; E11.9 Type 2 diabetes mellitus without complications; Z88.8 Allergy status to other drugs, medicaments and biological substances; Z79.84 Long term (current) use of oral hypoglycemic drugs
CPT/HCPCS: 36415; 43244; 82948; 85025; J2250; J2270; 43239

== ENCOUNTER → 2019-09-03 | Day surgery (SDC) | payer MEDICARE, OTHER ==
[2019-08-30 15:04] LABS: BASOPHILS % 0.5 % (0.0-1.0); EOSINOPHILS # (AUTO) 0.1 (0.0-0.4); EOSINOPHILS % 2.3 % (0.0-6.0); HEMATOCRIT 30.2 % (34.2-44.1); HEMOGLOBIN 9.9 g/dL (12.0-16.0); LYMPHOCYTES # (AUTO) 0.6 (1.0-3.2); LYMPHOCYTES % 29.6 % (18.0-39.1); MEAN CORPUSCULAR HEMOGLOBIN 29.7 pg (28-32); MEAN CORPUSCULAR HGB CONC 32.8 g/dL (31-35); MEAN CORPUSCULAR VOLUME 90.7 fL (81-99); MONOCYTES # (AUTO) 0.1 (0.2-0.8); MONOCYTES % 6.6 % (4.4-11.3); NEUTROPHILS # (AUTO) 1.3 (2.1-6.9); PLATELET COUNT 69 x10e3/uL (140-360); RED BLOOD COUNT 3.33 x10e6/uL (3.6-5.1); RED CELL DISTRIBUTION WIDTH 14.6 % (11.7-14.4)
[2019-08-30 15:14] LABS: INR 0.97; PROTHROMBIN TIME 13.5 seconds (11.9-14.5)
[2019-08-30 15:15] LABS: PARTIAL THROMBOPLASTIN TIME 27.4 seconds (23.8-35.5)
[2019-08-30 15:21] LABS: ALANINE AMINOTRANSFERASE 23 IU/L (0-55); ALBUMIN 3.2 g/dL (3.5-5.0); ALBUMIN/GLOBULIN RATIO 0.8 (0.8-2.0); ALKALINE PHOSPHATASE 126 IU/L (40-150); ANION GAP 14.1 mmol/L (8-16); BLOOD UREA NITROGEN 13 mg/dL (7-26); BUN/CREATININE RATIO 17 (6-25); CALCIUM 8.5 mg/dL (8.4-10.2); CARBON DIOXIDE 23 mmol/L (22-29); CHLORIDE 107 mmol/L (98-107); CREATININE, SERUM 0.76 mg/dL (0.57-1.11); EST GLOMERULAR FILTRATION RATE > 60 ML/MIN (60-); GLUCOSE 150 mg/dL (74-118); POTASSIUM 4.1 mmol/L (3.5-5.1); SODIUM 140 mmol/L (136-145)
[~2019-09-03] MED LIST changes: +CURCUMIN PO; -MORPHINE SULFATE 2 MG/ML SYR ONE; +PROPOFOL IV EMULSION 10 MG/ML 20 ML VIAL ONE; -PROPOFOL IV EMULSION 10 MG/ML 50 ML VIAL ONE; +PROTONIX20 MG PO; -SIMETHICONE 40 MG/0.6 ML BTL ONE; +TUMERIC PO; +VITAMIN B-121000 MCG PO; +tylenol arthritis PO; +vitamin D PO
[2019-09-03 16:30] VITALS: BP 141/68
--- NOTE | 2019-09-03 16:48 | Operative Report ---
DATE OF PROCEDURE: 09/03/2019 SURGEON: Mulugeta Myers MD PROCEDURE: An EGD with biopsies and banding of esophageal varices. INDICATIONS FOR PROCEDURE: Esophageal varices. MEDICATIONS: The patient was done under MAC, please see anesthesiologist's note. PROCEDURE IN DETAIL: With the patient in left lateral decubitus position, a flexible fiberoptic Olympus gastroscope was introduced into the esophagus under direct visualization without any difficulty. Grade 2-3 esophageal varices were noted without active bleeding or stigmata of recent hemorrhage. The scope was then advanced with ease into the stomach and the mucosa overlying the antrum and the body revealed some mild portal hypertensive gastropathy. An approximately 3 mm nodule was noted in the antrum that was biopsied. Pylorus was of normal contour and shape, was intubated with ease and the scope was advanced all the way to the second portion of the duodenum. The scope was then withdrawn slowly. Mucosa overlying the proximal second portion and the duodenal bulb grossly was unremarkable. The scope was then withdrawn back into the stomach and retroflexed and there was no obvious fundus or cardiac varices. The scope was then straightened out. It was subsequently withdrawn. It was then fitted for banding, was reintroduced into the esophagus. Four bands were applied to 3 columns of varices. The scope was subsequently withdrawn. The patient tolerated the procedure well. IMPRESSION: 1. Grade 2 to 3 esophageal varices, four bands were applied to 3 columns of varices. 2. Portal hypertensive gastropathy, mild. 3. Antral nodule, biopsied. PLAN: Follow up histology. Continue Inderal 10 mg one p.o. b.i.d. and Protonix 40 mg one p.o. b.i.d. Mulugeta Myers MD [facility] [place], [place]/[facility] /[id number] cc: Brad Michael MD
== END | disposition home or self-care (01) ==
LOC: OR 13:00
PROVIDERS: ATTEND Internal Medicine Gastroenterology
DX: K74.60 Unspecified cirrhosis of liver (principal); K31.7 Polyp of stomach and duodenum; I85.10 Secondary esophageal varices without bleeding; K76.6 Portal hypertension; K31.89 Other diseases of stomach and duodenum; E11.9 Type 2 diabetes mellitus without complications; L40.9 Psoriasis, unspecified; R03.0 Elevated blood-pressure reading, without diagnosis of hypertension; Z88.8 Allergy status to other drugs, medicaments and biological substances; Z01.810 Encounter for preprocedural cardiovascular examination; Z01.812 Encounter for preprocedural laboratory examination; Z11.59 Encounter for screening for other viral diseases; Z79.84 Long term (current) use of oral hypoglycemic drugs
CPT/HCPCS: 36415 ×2; 43239; 43244; 80053; 82948; 85025; 85610; 85730; 87635; 88305; 88312; 93005; J2250; J2704; J3010; 43255

== ENCOUNTER → 2020-05-21 | Day surgery (SDC) | payer MEDICARE, OTHER ==
[2020-05-16 10:16] LABS: BASOPHILS % 0.5 % (0.0-1.0); EOSINOPHILS % 1.8 % (0.0-6.0); HEMATOCRIT 30.3 % (34.2-44.1); LYMPHOCYTES # (AUTO) 0.6 (1.0-3.2); LYMPHOCYTES % 29.5 % (18.0-39.1); MEAN CORPUSCULAR HEMOGLOBIN 29.9 pg (28-32); MEAN CORPUSCULAR VOLUME 90.4 fL (81-99); MONOCYTES # (AUTO) 0.2 (0.2-0.8); MONOCYTES % 7.8 % (4.4-11.3); NEUTROPHILS # (AUTO) 1.3 (2.1-6.9); NEUTROPHILS % 60.4 % (38.7-80.0); PLATELET COUNT 75 x10e3/uL (140-360); RED BLOOD COUNT 3.35 x10e6/uL (3.6-5.1); RED CELL DISTRIBUTION WIDTH 14.8 % (11.7-14.4)
[2020-05-16 10:27] LABS: INR 0.96; PARTIAL THROMBOPLASTIN TIME 28.7 seconds (23.8-35.5); PROTHROMBIN TIME 13.4 seconds (11.9-14.5)
[2020-05-16 10:35] LABS: ALANINE AMINOTRANSFERASE 23 IU/L (0-55); ALBUMIN 3.4 g/dL (3.5-5.0); ALBUMIN/GLOBULIN RATIO 0.8 (0.8-2.0); ALKALINE PHOSPHATASE 130 IU/L (40-150); BLOOD UREA NITROGEN 10 mg/dL (7-26); BUN/CREATININE RATIO 14 (6-25); CALCIUM 8.6 mg/dL (8.4-10.2); CARBON DIOXIDE 26 mmol/L (22-29); CHLORIDE 107 mmol/L (98-107); CREATININE, SERUM 0.74 mg/dL (0.57-1.11); EST GLOMERULAR FILTRATION RATE > 60 ML/MIN (60-); GLUCOSE 165 mg/dL (74-118); SODIUM 142 mmol/L (136-145)
[~2020-05-21] MED LIST changes: +CENTRUM SILVER1 EAC5 PO; +HYOSCYAMINE SULFATE 0.5 MG/ML INJ ONE; +LIDOCAINE HCL 2% LOCAL INJ 5 ML SDV VIAL INJ ONE
[2020-05-21 09:52] VITALS: BP 141/64
== END | disposition home or self-care (01) ==
LOC: OR 06:26
PROVIDERS: ATTEND Internal Medicine Gastroenterology
DX: K74.60 Unspecified cirrhosis of liver (principal); K63.5 Polyp of colon; K31.7 Polyp of stomach and duodenum; I85.10 Secondary esophageal varices without bleeding; K29.70 Gastritis, unspecified, without bleeding; K76.6 Portal hypertension; K31.89 Other diseases of stomach and duodenum; K64.8 Other hemorrhoids; B96.81 Helicobacter pylori [H. pylori] as the cause of diseases classified elsewhere; D64.9 Anemia, unspecified; E11.9 Type 2 diabetes mellitus without complications; K21.9 Gastro-esophageal reflux disease without esophagitis; R06.81 Apnea, not elsewhere classified; Z88.8 Allergy status to other drugs, medicaments and biological substances; Z01.810 Encounter for preprocedural cardiovascular examination; Z01.812 Encounter for preprocedural laboratory examination; Z20.822 Contact with and (suspected) exposure to COVID-19; Z79.84 Long term (current) use of oral hypoglycemic drugs; Z86.16 Personal history of COVID-19; Z87.01 Personal history of pneumonia (recurrent)
CPT/HCPCS: 36415 ×2; 43239; 43244; 45384; 80053; 82948; 85025; 85610; 85730; 88305; 88312; 93005; J2250; J3010; U0002; 43255; 45378; J1980; J2001

== ENCOUNTER → 2020-09-09 | Day surgery (SDC) | payer MEDICARE, OTHER ==
[2020-09-03 16:47] LABS: BASOPHILS % 0.5 % (0.0-1.0); EOSINOPHILS # (AUTO) 0.1 (0.0-0.4); EOSINOPHILS % 2.8 % (0.0-6.0); HEMATOCRIT 30.7 % (34.2-44.1); LYMPHOCYTES # (AUTO) 0.7 (1.0-3.2); LYMPHOCYTES % 31.5 % (18.0-39.1); MEAN CORPUSCULAR HEMOGLOBIN 29.9 pg (28-32); MEAN CORPUSCULAR HGB CONC 32.6 g/dL (31-35); MEAN CORPUSCULAR VOLUME 91.6 fL (81-99); MONOCYTES # (AUTO) 0.2 (0.2-0.8); MONOCYTES % 8.5 % (4.4-11.3); NEUTROPHILS # (AUTO) 1.2 (2.1-6.9); NEUTROPHILS % 56.7 % (38.7-80.0); PLATELET COUNT 78 x10e3/uL (140-360); RED BLOOD COUNT 3.35 x10e6/uL (3.6-5.1); RED CELL DISTRIBUTION WIDTH 15.2 % (11.7-14.4)
[2020-09-03 16:58] LABS: INR 0.97; PROTHROMBIN TIME 13.5 seconds (11.9-14.5)
[2020-09-03 16:59] LABS: PARTIAL THROMBOPLASTIN TIME 25.8 seconds (23.8-35.5)
[2020-09-03 17:08] LABS: ALBUMIN 3.3 g/dL (3.5-5.0); ALBUMIN/GLOBULIN RATIO 0.8 (0.8-2.0); ANION GAP 11.4 mmol/L (8-16); CALCIUM 8.3 mg/dL (8.4-10.2); CREATININE, SERUM 0.77 mg/dL (0.57-1.11); POTASSIUM 4.4 mmol/L (3.5-5.1)
[~2020-09-09] MED LIST changes: -FENTANYL CITRATE/PF 100MCG/2 ML INJ ONE; -HYOSCYAMINE SULFATE 0.5 MG/ML INJ ONE; -LIDOCAINE HCL 2% LOCAL INJ 5 ML SDV VIAL INJ ONE; -MIDAZOLAM HCL 2 MG/2 ML VIAL ONE; +OR PHACO EYE KIT ONE; +PREOP PHACO EYE KIT ONE; -PROPOFOL IV EMULSION 10 MG/ML 20 ML VIAL ONE; +TRESIBA100 UNIT/1 SC; +TRISEBA SC
[2020-09-09 12:00] VITALS: BP 139/62
== END | disposition home or self-care (01) ==
LOC: OR 09:34
PROVIDERS: ATTEND Ophthalmology
DX: H25.11 Age-related nuclear cataract, right eye (principal); E11.9 Type 2 diabetes mellitus without complications; B19.10 Unspecified viral hepatitis B without hepatic coma; K74.60 Unspecified cirrhosis of liver; I85.10 Secondary esophageal varices without bleeding; K21.9 Gastro-esophageal reflux disease without esophagitis; R00.1 Bradycardia, unspecified; Z01.810 Encounter for preprocedural cardiovascular examination; Z01.812 Encounter for preprocedural laboratory examination; Z79.4 Long term (current) use of insulin; Z86.16 Personal history of COVID-19; Z87.01 Personal history of pneumonia (recurrent)
CPT/HCPCS: 36415 ×2; 66984; 80053; 82948; 85025; 85610; 85730; 93005; V2632

== ENCOUNTER → 2020-09-30 | Day surgery (SDC) | payer MEDICARE, OTHER ==
[~2020-09-30] MED LIST changes: +BLACK ELDERBER1 EACH PO; +FENTANYL CITRATE/PF 100MCG/2 ML INJ ONE; +MIDAZOLAM HCL 2 MG/2 ML VIAL ONE
[2020-09-30 12:50] VITALS: BP 131/58
== END | disposition home or self-care (01) ==
LOC: OR 09:25
PROVIDERS: ATTEND Ophthalmology
DX: H25.12 Age-related nuclear cataract, left eye (principal); Z88.6 Allergy status to analgesic agent; K21.9 Gastro-esophageal reflux disease without esophagitis; Z86.19 Personal history of other infectious and parasitic diseases; K76.0 Fatty (change of) liver, not elsewhere classified; D64.9 Anemia, unspecified; Z87.442 Personal history of urinary calculi; E11.9 Type 2 diabetes mellitus without complications; K74.60 Unspecified cirrhosis of liver; Z79.4 Long term (current) use of insulin
CPT/HCPCS: 36415; 66984; 82948; J2250; J3010

== ENCOUNTER → 2021-08-28 | Day surgery (SDC) | payer MEDICARE, OTHER ==
[2021-08-26 15:48] LABS: BASOPHILS % 0.6 % (0.0-1.0); EOSINOPHILS % 2.4 % (0.0-6.0); HEMATOCRIT 29.5 % (34.2-44.1); HEMOGLOBIN 9.7 g/dL (12.0-16.0); LYMPHOCYTES # (AUTO) 0.5 (1.0-3.2); LYMPHOCYTES % 31.2 % (18.0-39.1); MEAN CORPUSCULAR HEMOGLOBIN 33.2 pg (28-32); MEAN CORPUSCULAR HGB CONC 32.9 g/dL (31-35); MONOCYTES # (AUTO) 0.1 (0.2-0.8); MONOCYTES % 7.6 % (4.4-11.3); PLATELET COUNT 81 x10e3/uL (140-360); RED BLOOD COUNT 2.92 x10e6/uL (3.6-5.1); RED CELL DISTRIBUTION WIDTH 14.2 % (11.7-14.4)
[~2021-08-28] MED LIST changes: -FENTANYL CITRATE/PF 100MCG/2 ML INJ ONE; +LIDOCAINE HCL 2% LOCAL INJ 5 ML SDV VIAL INJ ONE; -OR PHACO EYE KIT ONE; -PREOP PHACO EYE KIT ONE; +PROPOFOL IV EMULSION 10 MG/ML 20 ML VIAL ONE
[2021-08-28 07:41] LABS: INR 1.02; PROTHROMBIN TIME 14.3 seconds (11.9-14.5)
[2021-08-28 07:42] LABS: PARTIAL THROMBOPLASTIN TIME 30.3 seconds (23.8-35.5)
[2021-08-28 07:47] LABS: ANION GAP 13.1 mmol/L (8-16); CALCIUM 8.8 mg/dL (8.4-10.2); CREATININE, SERUM 0.69 mg/dL (0.57-1.11); POTASSIUM 4.1 mmol/L (3.5-5.1)
[2021-08-28 08:02] LABS: ALBUMIN 3.1 g/dL (3.5-5.0); ALBUMIN/GLOBULIN RATIO 0.7 (0.8-2.0)
[2021-08-28 09:45] VITALS: BP 145/62
== END | disposition home or self-care (01) ==
LOC: OR 06:34
PROVIDERS: ATTEND Internal Medicine Gastroenterology
DX: K74.60 Unspecified cirrhosis of liver (principal); I85.10 Secondary esophageal varices without bleeding; K76.6 Portal hypertension; K31.89 Other diseases of stomach and duodenum; K21.9 Gastro-esophageal reflux disease without esophagitis; E11.9 Type 2 diabetes mellitus without complications; Z88.8 Allergy status to other drugs, medicaments and biological substances; Z01.812 Encounter for preprocedural laboratory examination; Z20.822 Contact with and (suspected) exposure to COVID-19; Z79.4 Long term (current) use of insulin; Z85.828 Personal history of other malignant neoplasm of skin; Z92.3 Personal history of irradiation; Z87.01 Personal history of pneumonia (recurrent); Z86.16 Personal history of COVID-19
CPT/HCPCS: 36415 ×3; 43244; 80053; 82948; 85025; 85610; 85730; J2001; J2250; J2704; U0002; 43235; 43255

== ENCOUNTER → 2022-04-08 | Day surgery (SDC) | payer MEDICARE, OTHER ==
[2022-03-25 14:33] LABS: BASOPHILS % 0.5 % (0.0-1.0); EOSINOPHILS # (AUTO) 0.1 (0.0-0.4); EOSINOPHILS % 2.9 % (0.0-6.0); HEMATOCRIT 31.4 % (34.2-44.1); LYMPHOCYTES # (AUTO) 0.6 (1.0-3.2); LYMPHOCYTES % 30.7 % (18.0-39.1); MEAN CORPUSCULAR HEMOGLOBIN 32.2 pg (28-32); MEAN CORPUSCULAR HGB CONC 31.8 g/dL (31-35); MONOCYTES # (AUTO) 0.1 (0.2-0.8); MONOCYTES % 6.3 % (4.4-11.3); NEUTROPHILS # (AUTO) 1.2 (2.1-6.9); NEUTROPHILS % 59.6 % (38.7-80.0); RED BLOOD COUNT 3.11 x10e6/uL (3.6-5.1); RED CELL DISTRIBUTION WIDTH 13.3 % (11.7-14.4)
[2022-03-25 14:38] LABS: PLATELET COUNT 68 x10e3/uL (140-360)
[2022-03-25 14:42] LABS: INR 1.1; PROTHROMBIN TIME 14.4 seconds (11.9-14.5)
[2022-03-25 14:43] LABS: PARTIAL THROMBOPLASTIN TIME 30.7 seconds (23.8-35.5)
[2022-03-25 15:08] LABS: ALBUMIN 3.3 g/dL (3.5-5.0); ALBUMIN/GLOBULIN RATIO 0.8 (0.8-2.0); ANION GAP 13.4 mmol/L (8-16); CALCIUM 8.7 mg/dL (8.4-10.2); CREATININE, SERUM 0.75 mg/dL (0.57-1.11); POTASSIUM 4.4 mmol/L (3.5-5.1)
[~2022-04-08] MED LIST changes: -MIDAZOLAM HCL 2 MG/2 ML VIAL ONE; +ONDANSETRON HCL 4 MG ORAL DISINTEGRATING TAB ONE; +OZEMPIC0.25 MG/0. SC
[2022-04-08 14:55] VITALS: BP 136/66
== END | disposition home or self-care (01) ==
LOC: OR 11:40
PROVIDERS: ATTEND Internal Medicine Gastroenterology
DX: K74.60 Unspecified cirrhosis of liver (principal); I85.10 Secondary esophageal varices without bleeding; K29.60 Other gastritis without bleeding; I86.4 Gastric varices; K76.6 Portal hypertension; K31.89 Other diseases of stomach and duodenum; K59.09 Other constipation; Z71.3 Dietary counseling and surveillance; E11.9 Type 2 diabetes mellitus without complications; L40.50 Arthropathic psoriasis, unspecified; R03.0 Elevated blood-pressure reading, without diagnosis of hypertension; Z71.89 Other specified counseling; B19.20 Unspecified viral hepatitis C without hepatic coma; Z88.8 Allergy status to other drugs, medicaments and biological substances; Z01.810 Encounter for preprocedural cardiovascular examination; Z01.812 Encounter for preprocedural laboratory examination; Z79.4 Long term (current) use of insulin; Z79.85 Long-term (current) use of injectable non-insulin antidiabetic drugs; Z79.84 Long term (current) use of oral hypoglycemic drugs; Z79.899 Other long term (current) drug therapy; Z68.28 Body mass index [BMI] 28.0-28.9, adult; Z87.19 Personal history of other diseases of the digestive system; Z86.16 Personal history of COVID-19
CPT/HCPCS: 36415; 43244; 80053; 85025; 85610; 85730; 93005; C9113; J2001; J2704; Q0162; 43235